=== PATIENT | male | born 1960 | race Caucasian/White ===

== ENCOUNTER → 2017-07-30 09:50 | Outpatient (CLI) | payer MEDICARE, SELFPAY ==
[2017-07-30 11:18] LABS: AST(SGOT) 33 U/L (15-37); Alanine Aminotransfer ALT/SGPT 28 U/L (16-61); Albumin, Serum 4.1 g/dL (3.2-5.0); Alkaline Phosphatase 48 U/L (45-117); Anion Gap 10 (5-15); BUN 61 mg/dL (7-18); BUN/Creat Ratio 29.8 RATIO (10-20); Bilirubin, Direct 0.14 mg/dL (0.00-0.30); Calcium,Total 9.2 mg/dL (8.5-10.1); Chloride 100 mmol/L (98-107); Cholesterol 90 mg/dL (200); Creatinine, Serum 2.05 mg/dL (0.70-1.30); EST Glomerular Filtration Rate 36 mL/min (>60); Est Glom Filt Rate - Afr Amer 43 mL/min (>60); Globulin 4.2 g/dL (2.2-4.2); Glucose 59 mg/dL (74-106); High Density Lipoprotein 21 mg/dL; Potassium 4.7 mmol/L (3.5-5.1); Protein, Total 8.3 g/dL (6.4-8.2); Sodium Level 138 mmol/L (136-145); T4 Total, Thyroxin 7.8 ug/dL (4.5-12.1); Triglycerides 245 mg/dL; Very Low Density Lipoprotein 49 mg/dL (5-40)
== END ==
PROVIDERS: Family Provider Family Medicine; PCP Family Medicine; Visit Provider Internal Medicine Cardiovascular Disease
DX: E11.9 Type 2 diabetes mellitus without complications (principal); E78.5 Hyperlipidemia, unspecified; E03.2 Hypothyroidism due to medicaments and other exogenous substances; Z79.899 Other long term (current) drug therapy
CPT/HCPCS: 36415; 80048; 80061; 80076; 84436; 84443

== ENCOUNTER → 2017-10-18 15:45 | Outpatient (CLI) | payer MEDICARE, SELFPAY ==
[2017-10-18 17:35] LABS: Anion Gap 7 (5-15); BUN 57 mg/dL (7-18); BUN/Creat Ratio 25.9 RATIO (10-20); Chloride 103 mmol/L (98-107); EST Glomerular Filtration Rate 33 mL/min (>60); Est Glom Filt Rate - Afr Amer 40 mL/min (>60); Glucose 69 mg/dL (74-106); Sodium Level 137 mmol/L (136-145)
== END ==
PROVIDERS: Family Provider Family Medicine; PCP Family Medicine; Visit Provider Family Medicine
DX: E11.9 Type 2 diabetes mellitus without complications (principal)
CPT/HCPCS: 36415; 80048

== ENCOUNTER → 2017-11-09 16:24 | Outpatient (CLI) | payer MEDICARE, SELFPAY ==
[2017-11-09 17:48] LABS: Absolute Lymphocyte Count 1.41 X10^3/ul (0.83-4.51); Absolute Neutrophil Count 6.1 X10^3/uL (2.0-7.7); Basophil# 0.03 X10^3/uL; Basophil% 0.4 % (0-1); Eosinophil# 0.26 X10^3/uL; Hematocrit 41.6 % (40-54); Hemoglobin 13.5 g/dl (13.0-16.5); Lymphocyte # 1.41 X10^3/ul (4.0); Lymphocyte % 16.5 % (19-41); Mean Corp Hgb Conc 32.5 g/gl (32-36); Mean Corpuscular Hgb 30.7 pg (27.0-32.0); Mean Corpuscular Volume 94.5 fL (80-94); Mean Platelet Vol. 10.5 fl (6.2-12.0); Monocyte# 0.68 X10^3/uL; Neutrophil # 6.13 X10^3/uL (2.7-7.7); Neutrophil % 71.7 % (47-70); Platelet Count 242 K/mm3 (150-450); RBC Distribution Width CV 14.8 % (11.6-14.6); RBC Distribution Width SD 50.5 fl (35.1-43.9); White Blood Count 8.5 K/mm3 (4.4-11.0)
[2017-11-09 17:52] LABS: POSITIVE COUNT NO; POSITIVE DIFFERENTIAL NO; POSITIVE MORPHOLOGY NO
== END ==
PROVIDERS: Family Provider Family Medicine; PCP Family Medicine; Visit Provider Family Medicine
DX: D64.9 Anemia, unspecified (principal)
CPT/HCPCS: 36415; 85025

== ENCOUNTER → 2018-02-19 06:39 | Outpatient (CLI) | payer MEDICARE, SELFPAY ==
--- NOTE | 2018-02-19 06:46 | RAD_ITS ---
STUDY: X-RAY CHEST REASON FOR EXAM: Male, 57 years old. CHF TECHNIQUE: Frontal and lateral views of the chest COMPARISON: 10/17/2016 FINDINGS: The lungs are clear. There are no pleural effusions. There is no pneumothorax. The heart is enlarged, but stable. Again noted is a pacemaker. The patient is status post sternotomy. RAD/Chest PA and Lateral IMPRESSION: No acute thoracic pathology. Electronically Signed: Ld Najera, at 17:03 EDT Tel , Service support ,
--- NOTE | 2018-02-19 15:48 | PFTCOMP ---
COMPLETE PULMONARY FUNCTION TEST INTERPRETATION Brief HPI: Patient is a 57 year old male, currently under the care of Dr. Velez, who presents to [facility] for complete pulmonary function tests secondary to diagnosis of high risk med use. Respiratory therapist reports good effort and reproducible results. Interpretation: Forced expiration spirometry shows no large airways obstructive ventilatory defect with an FEV1 of 41% predicted. There is no significant bronchodilator response by ATS criteria. Spirograms are of good quality and plateau slowly, indicating slowly emptying areas of the lungs. The respiratory flow volume loop shows a normal pattern. Lung volumes by body plethysmography show a decreased total lung capacity at 4.9 L, 64% predicted. FRC and RV are elevated out of proportion. Lung volume measurements are consistent with air-trapping. Diffusion capacity by carbon monoxide is decreased at 56% predicted. The airway resistance is normal. Compared to previous pulmonary function tests from 10/17/16, there has been a significant reduction in FVC and FEV1 by 19% and 18% respectively. Impression: Moderate restrictive ventilatory defect with a symmetric reduction diffusing capacity. There has been some worsening in air flows compared to previous.
== END ==
PROVIDERS: Family Provider Family Medicine; PCP Family Medicine; Referring Provider Internal Medicine Cardiovascular Disease; Visit Provider Internal Medicine Cardiovascular Disease
DX: Z79.899 Other long term (current) drug therapy (principal)
CPT/HCPCS: 71046; 94060; 94726; 94729

== ENCOUNTER → 2018-04-19 10:24 | Outpatient (CLI) | payer MEDICARE, SELFPAY ==
[2018-02-11 11:12] VITALS: BMI 31.9
[2018-04-19 13:36] LABS: AST(SGOT) 26 U/L (15-37); Alanine Aminotransfer ALT/SGPT 29 U/L (16-61); Albumin, Serum 4.2 g/dL (3.2-5.0); Alkaline Phosphatase 56 U/L (45-117); Anion Gap 8 (5-15); BUN 76 mg/dL (7-18); BUN/Creat Ratio 36.9 RATIO (10-20); Bilirubin, Direct 0.13 mg/dL (0.00-0.30); Calcium,Total 8.8 mg/dL (8.5-10.1); Chloride 100 mmol/L (98-107); Cholesterol 109 mg/dL (200); Creatinine, Serum 2.06 mg/dL (0.70-1.30); EST Glomerular Filtration Rate 35 mL/min (>60); Est Glom Filt Rate - Afr Amer 43 mL/min (>60); Globulin 3.8 g/dL (2.2-4.2); Glucose 256 mg/dL (74-106); High Density Lipoprotein 20 mg/dL; Potassium 5.9 mmol/L (3.5-5.1); Sodium Level 134 mmol/L (136-145); Triglycerides 427 mg/dL
--- OUTSIDE RECORDS SUMMARY | 2018-06-05 01:25 | XMS RPT_ITS ---
:1960 Author Organization OHIP Care Team Providers Name Role Phone Aaron Doe Attending Unavailable Aaron Doe Primary Care Unavailable Juana Ureña Attending Unavailable Aaron Sarmiento Attending Unavailable Aaron Sarmiento Referring Unavailable Aaron Doe Primary Care Unavailable Aaron Doe Attending Unavailable Aaron Doe Primary Care Unavailable Aaron Doe Attending Unavailable Aaron Doe Primary Care Unavailable Juana Ureña Attending Unavailable Aaron Doe Referring Unavailable Aaron Doe Primary Care Unavailable Aaron Sarmiento Attending Unavailable Aaron Doe Referring Unavailable Aaron Sarmiento Attending Unavailable Aaron Sarmiento Referring Unavailable Aaron Doe Primary Care Unavailable Raúl Preciado Attending Unavailable Moodiskelliw, Aaron Referring Unavailable Juana Ureña Attending Unavailable Aaron Doe Referring Unavailable Juana Ureña Attending Unavailable PROBLEMS PROBLEMS DATE TYPE CONDITION / CODE ATTENDING STATUS SOURCE 04/19/2018 Unknown E11.9 - Type 2 Aaron Doe Active [facility] diabetes mellitus Community without Hospital complications / Repository E11.9(ICD-10) 04/09/2018 Unknown Z95.810 - Presence Juana Ureña Active [place] of automatic Community (implantable) Hospital cardiac Repository defibrillator / Z95.810(ICD-10) 04/09/2018 Unknown I25.5 - Ischemic [place] Ureña Active [facility] cardiomyopathy / Community I25.5(ICD-10) Hospital Repository 04/09/2018 Unknown I43 - Cardiomyopathy Niranjan Juana Active [facility] in diseases Community classified elsewhere Hospital / I43(ICD-10) Repository 02/26/2018 Unknown Z79.899 - Other long Raúl Preciado Active [facility] term (current) drug Community therapy / Hospital Z79.899(ICD-10) Repository 01/01/2018 Unknown I50.22 - Chronic [place] U[place]ña Active [facility] systolic Community (congestive) heart Hospital failure / Repository I50.22(ICD-10) 11/09/2017 Unknown D64.9 - Anemia, Jitendra Aaron Active [facility] unspecified / Community D64.9(ICD-10) Hospital Repository 07/30/2017 Unknown E78.5 - Aaron Sarmiento Active [facility] Hyperlipidemia, Community unspecified / Hospital E78.5(ICD-10) Repository 07/30/2017 Unknown E03.2 - Aaron Sarmiento Active [facility] Hypothyroidism due Community to medicaments and Hospital other exogenous Repository substances / E03.2(ICD-10) PROCEDURES PROCEDURES No Procedure Records FoundRESULTS RESULTS BASIC METABOLIC Collected: 04/19/2018 Status: F Source: [place] PROFILE (BMP) 10:[facility] AM [facility] TYPE CODE TESTS RESULT OUT OF RANGE REFERENCE UNITS LAB L501.0100 74-106 mg/dL High GLU 256 Result Comment: Glucose result greater than or equal to 200 mg/dL suggests DIABETES MELLITUS per A.D.A. criteria. Please note revised GLUCOSE reference range effective 2017. LAB L501.1000 7-18 mg/dL High BUN 76 LAB L501.1100 0.70-1.30 mg/dL High CREAT,SERUM 2.06 Result Comment: The validity of the calculated GFR AND GFRAA in patients over 70 years has not been determined. Clinical correlation is essential. LAB L501.1110 >60 mL/min Low EST GFR 35 Result Comment: Non- GFR Calc LAB L501.1115 >60 mL/min Low EST GFR - AA 43 Result Comment: GFR Calc LAB L501.1300 10-20 RATIO High BUN/CRE 36.9 LAB L501.2200 8.5-10.1 mg/dL CA Normal 8.8 LAB L501.5300 136-145 mmol/L Low NA 134 LAB L501.5600 3.5-5.1 mmol/L High K 5.9 LAB L501.5900 98-107 mmol/L CL Normal 100 LAB L501.6100 21.0-32.0 mmol/L Normal CO2 26.0 LAB L501.6200 5-15 Normal GAP 8 Performed By: #### L500.2500, L500.3400, L500.4100 #### [facility] [address] [place], [place], [id number] LIVER PROFILE Collected: 04/19/2018 Status: F Source: [place] 10:26 AM [facility] REPOSITORY TYPE CODE TESTS RESULT OUT OF RANGE REFERENCE UNITS LAB L501.1500 6.4-8.2 g/dL Normal T PROT 8.0 LAB L501.1800 3.2-5.0 g/dL Normal ALB 4.2 LAB L501.1950 2.2-4.2 g/dL Normal GLOB 3.8 LAB L501.4100 15-37 U/L Normal AST 26 LAB L501.4305 45-117 U/L Normal ALK P 56 LAB L501.4405 16-61 U/L Normal ALT 29 LAB L501.4600 0.20-1.00 mg/dL Normal T BILI 0.30 LAB L501.4700 0.00-0.30 mg/dL Normal D BILI 0.13 Performed By: #### L500.2500, L500.3400, L500.4100 #### [facility] [address] [place], [address] LIPID PROFILE Collected: 04/19/2018 Status: F Source: [place] 10:26 AM [facility] REPOSITORY TYPE CODE TESTS RESULT OUT OF RANGE REFERENCE UNITS LAB L501.4900 200 mg/dL Normal CHOL 109 Result Comment: <200 mg/dL Desirable 200-240 mg/dL Borderline >240 mg/dL High Risk LAB L501.5000 mg/dL High TRIG 427 Result Comment: The drugs N-Acetylcysteine and Metamizole may falsely depress this assay. TRIGLYCERIDE IS GREATER THAN 400 mg/dL. LDL RESULT IS INVALID AND WILL NOT BE REPORTED. Serum Triglycerides Reference Interval Normal <150 mg/dL Borderline high 150 - 199 mg/dL High 200 - 499 mg/dL Very High > or = 500 mg/dL LAB L501.6400 mg/dL Low HDL 20 Result Comment: The drugs N-Acetylcysteine and Metamizole may falsely depress this assay. Reference Range HDL <40 mg/dL Low HDL Cholesterol HDL >or= 60 mg/dL High HDL Cholesterol LAB L501.6500 0-130 mg/dL Test Normal not performed LDL LAB L501.6600 5-40 mg/dL Test Normal not performed VLDL Performed By: #### L500.2500, L500.3400, L500.4100 #### [facility] [address] [place], [address] PACEMAKER CHECK Observed: 04/08/2018 Status: F Source: [place] 4:04 PM [facility] REPOSITORY [facility] [address] [place] [address] Pacemaker Check Date of Service: 04/08/181511 MR#: [id number] Acct: [id number] Name: NATHALY COPPOLA Rep #: [id number] : 1960 From: [place] Ureña Age/Sex: 57/M Location: [facility] Status: Signed 04/08/18 1514 <Electronically signed by Juana Ureña > Date Juana Ureña 04/08/18 1604<Electronically signed by Aaron Sarmiento MD> Kaitlynnigner Signature: Date (if applicable) Aaron Sarmiento MD CC: PULMONARY FUNCTION Observed: 02/19/2018 Status: F Source: [place] REPORT COMP 4:17 PM [facility] REPOSITORY [facility] Pulmonary Services/Neurology [address] [place] [address] MR#: [id number] Acct: [id number] Name: NATHALY COPPOLA Rep #: [id number] : 1960 57 From: Raúl Preciado MD Referring Dr: Aaron Sarmiento MD Status: REG CLI Ordering Dr: Date: Location: [facility] Sex: M C COMPLETE PULMONARY FUNCTION TEST INTERPRETATION Brief HPI: Patient is a 57 year old male, currently under the care of Dr. Sarmiento, who presents to [facility] for complete pulmonary function tests secondary to diagnosis of high risk med use. Respiratory therapist reports good effort and reproducible results. Interpretation: Forced expiration spirometry shows no large airways obstructive ventilatory defect with an FEV1 of 41% predicted. There is no significant bronchodilator response by ATS criteria. Spirograms are of good quality and plateau slowly, indicating slowly emptying areas of the lungs. The respiratory flow volume loop shows a normal pattern. Lung volumes by body plethysmography show a decreased total lung capacity at 4.9 L, 64% predicted. FRC and RV are elevated out of proportion. Lung volume measurements are consistent with air-trapping. Diffusion capacity by carbon monoxide is decreased at 56% predicted. The airway resistance is normal. Compared to previous pulmonary function tests from 10/17/16, there has been a significant reduction in FVC and FEV1 by 19% and 18% respectively. Impression: Moderate restrictive ventilatory defect with a symmetric reduction diffusing capacity. There has been some worsening in air flows compared to previous. 02/19/18 1617 <Electronically signed by Raúl Preciado MD> Date Raúl Preciado MD CC: Raúl Preciado MD; Aaron Sarmiento MD; Aaron Doe MD Date Dictated: 02/19/181547 Date Transcribed: 02/19/181547 Sheet Metal Welder: ZEKE Signed CHEST PA AND LATERAL Observed: 02/19/2018 Status: F Source: [place] 6:46 AM [facility] REPOSITORY [facility] Imaging Services [address] [place] [address] Chest PA and Lateral MR#: [id number] Acct: [id number] Name: NATHALY COPPOLA Rep #: [id number] : 1960 M 57 From: dL Najera MD PCP: Aaron Doe MD Status: REG CLI Study: Chest PA and Lateral Date of Exam: 02/19/18 Exam# [id number] Ordering Dr: Aaron Sarmiento MD STUDY: X-RAY CHEST REASON FOR EXAM: Male, 57 years old. CHF TECHNIQUE: Frontal and lateral views of the chest COMPARISON: 10/17/2016 FINDINGS: The lungs are clear. There are no pleural effusions. There is no pneumothorax. The heart is enlarged, but stable. Again noted is a pacemaker. The patient is status post sternotomy. RAD/Chest PA and Lateral IMPRESSION: No acute thoracic pathology. Electronically Signed: Ld Najera, at 17:03 EDT Tel , Service support , CC: Aaron Sarmiento MD; Aaron Doe MD Sheet Metal Welder: Signed CARDIOLOGY VISIT Observed: 02/11/2018 Status: F Source: [place] REPORT 12:33 PM [facility] REPOSITORY [facility] 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 Overall from a cardiac standpoint he states he continues to feel good. He is not complaining of any ongoing symptoms of classic angina pectoris at rest or with exertion and he has not had use any nitroglycerin sublingual tablets. There has been no issues with overt acute CHF such as orthopnea or PND. His lower extremities appear to be chronically discolored but without any obvious ongoing lower extremity/ankle/pedal edema. There is been no near syncope or syncope and he has had no ICD discharges. Intake Vital Signs02/11/18 Height 6 ft 2 in 02/11/18 Weight: 249 lb 02/11/18 Body Mass Index (BMI) 31.9 02/11/18 Blood Pressure 110/58 L Intake Visit Reasons: 6 M FU Allergies No Known Allergies Allergy (Unverified 02/11/18 11:12) Medications aspirin 81 mg tablet,delayed release 81 mg PO QDAY 05/10/17 [History Confirmed 02/11/18] carvedilol 12.5 mg tablet 12.5 mg PO BID 05/10/17 [History Confirmed 02/11/18] cholecalciferol (vitamin D3) 2,000 unit capsule 2,000 unit PO QDAY cap 05/10/17 [History Confirmed 02/11/18] febuxostat 80 mg tablet 80 mg PO QDAY 05/10/17 [History Confirmed 02/11/18] ferrous gluconate 324 mg (38 mg iron) tablet 324 mg PO TID tab 05/10/17 [History Confirmed 02/11/18] gemfibrozil 600 mg tablet 600 mg PO BID 05/10/17 [History Confirmed 02/11/18] metformin 500 mg tablet 500 mg PO BID 05/10/17 [History Confirmed 02/11/18] nitroglycerin 0.4 mg sublingual tablet 0.4 mg SUBLINGUAL Q5M PRN 05/10/17 [History Confirmed 02/11/18] atorvastatin 20 mg tablet 20 mg PO QDAY #90 tab 07/04/17 [Rx Confirmed 02/11/18] ramipril 2.5 mg capsule 2.5 mg PO QDAY #90 cap 08/09/17 [Rx Confirmed 02/11/18] hydralazine 10 mg tablet 10 mg PO TID #270 tab 09/26/17 [Rx Confirmed 02/11/18] spironolactone 25 mg tablet 25 mg PO QDAY #90 tab 09/26/17 [Rx Confirmed 02/11/18] amiodarone 200 mg tablet 200 mg PO QDAY #90 tab 02/11/18 [Rx Confirmed 02/11/18] furosemide 20 mg tablet 20 mg PO BID tab 02/11/18 [History] glimepiride 1 mg tablet 2 mg PO QAM tab 02/11/18 [History Confirmed 02/11/18] icosapent ethyl 1 gram capsule 1 g PO BID cap 02/11/18 [History Confirmed 02/11/18] levothyroxine 75 mcg tablet 75 mcg PO DAILY #90 tab 02/11/18 [Rx Confirmed 02/11/18] [facility] Medical History Atherosclerosis of coronary artery bypass graft without angina pectoris (Acute) Aneurysm of heart (Acute) Ischemic cardiomyopathy (Acute) Idiopathic pulmonary hypertension (Acute) Cardiomyopathy in other diseases classified elsewhere (Acute) Left atrial enlargement (Acute) Long-term use of high-risk medication (Acute) Hyperlipidemia (Chronic) Hypertension (Chronic) Chronic systolic CHF (congestive heart failure) (Chronic) Anemia (Acute) Cardiac arrest with ventricular fibrillation (Acute) Chest pain (Acute) Dyspnea (Acute) Edema (Acute) Fatigue (Acute) Gout (Acute) Syncope and collapse (Acute) Type 2 diabetes mellitus (Acute) Hypothyroidism, iatrogenic (Chronic) Atherosclerotic heart disease of [place] coronary artery without angina pectoris (Inactive) Surgical History Aortocoronary bypass status (Chronic 10/2005) Automatic implantable cardiac defibrillator in situ (Resolved 02/2012) Family History Father Myocardial infarction Mother CAD (coronary artery disease) Hypertension Brother Hypertension Sister Hypertension Diabetes Sister Hypertension Diabetes Social History Smoking Status: Former smoker alcohol intake: never substance use type: does not use ROS Const Const: Negative for fatigue, weakness, weight gain, weight loss, frequent falls or excessive sweating Eyes Eyes: Negative for change in vision, blurry vision or transient loss of vision ENT ENT: Negative for dizziness or balance problems Cardio Chest Pain: No Palpitations: No Edema: None Muscle aches with walking: None Resp Respiratory: Positive for SOB with activity (baseline); negative for SOB at rest GI GI: Negative vomiting or vomiting blood/hematemesis : Negative for hematuria Musc Musc: Negative for balance problems, muscle aches/ myalgia, muscle weakness or joint pain Skin Skin: Negative non-healing lesions or rash Neuro Neuro: Negative for weakness, blurry vision, dizziness, lightheadedness, frequent falls or orthostatic symptoms [place] Hematologic/Lymphatic: Negative for easy bleeding Endo Endo: Negative for fatigue or excessive sweating Psych Psych: Negative for anxiety or depression Allergy Allergy/Immunology: Negative for hives, Negative for rash Cardiology Exam Const Appearance: cooperative, healthy appearing, comfortable, well developed and well groomed Nutritional Appearance: overweight Orientation: alert, awake and oriented x3 Head Head: normal to inspection, normocephalic and atraumatic Ears: hearing grossly normal bilaterally Nose: external nose normal Face and Sinus: face symmetric Mouth: oral mucosae normal Teeth and gingiva: dentition normal Eyes General: appearance normal, both eyes and all related structures Eyelids: eyelids normal Conjunctivae: conjunctivae normal Pupils: PERRL Neck Neck: normal visual inspection Carotids: normal carotid upstroke Chest Chest inspection: normal inspection of the chest and symmetric chest movement Auscultation: Bilateral: Clear to Auscultation Cardio Palpation: normal PMI Rate: regular rate Rhythm: regular rhythm Heart sounds: S1 normal and S2 normal Murmur: Grade 2/6, mid systolic, LLSB and LVOT GI GI: normal to inspection, bowel sounds present, soft and no hepatosplenomegaly Neuro General: alert, awake and oriented x3 Skin Skin: no rashes or lesions noted Extremities Pulses: Normal: Right Radial Pulse, Left Radial Pulse Lower Extremity Edema: Trace: Bilateral Psych Psychological: normal affect Supplemental Info He had a dense thoracic echocardiogram on 10/29/2012 Summary: The study was technically difficult. Contrast injection was performed. Severely dilated left ventricle. Severe segmental systolic dysfunction (see wail motion). The estimated ejection fraction is 1 5 %. The left atrium is moderately enlarged. The right atrium is mildly enlarged. There is mild annular annular calcification. Mild papillary muscle dysfunction of the mitral valve. Trivial mitral valve insufficiency. Mild tricuspid valve insufficiency. Aortic sclerosis, no stenosis. Right ventricular systolic pressure estimated to be 33 mmHg. Transmitral doppler flow suggestive of impaired relaxation of left ventricle lCD or pacer leads identified within the right atrium lCD or pacer leads identified within the right ventricle He had a stress test performed on 01/02/2006 CONCLUSION: 1. Technically adequate (%PMHR>85%) ETT. 2. Peak exercise ECG with no obvious diagnostic NEC evidence of myocardial ischemia at the heart rate achieved. ECG evidence of myocardial ischemia at a higher rate cannot be excluded. He had a cardiac catheterization performed on 10/27/2005 FINAL IMPRESSION 1. Elevated left ventricular end-diastolic pressure compatible with decreased LV systolic function. 2. Secondary pulmonary hypertension. 3. Oxygen saturations, no obvious evidence of intracardiac shunting phenomenon. 4. Left ventricle. Severe segmental left ventricular systolic dysfunction with severe hypokinesis of the distal anterior, anterior apical segment and akinesis of the mid diaphragmatic and inferior apical segment with an estimite LV IF 15 5. Left main. Angiographic venkatesh]. 1. LAD. Anterior trunk - proximal tapering toward the sepia] cat tender system with diffuse 25 eccentric appearing stenosis. a> At the level of the septal cat tender, there is 85-95% irregular eccentric appearing stenosis. b> Remainder of the LAD system with minimal luminal irregularities appearing to fill late and somewhat faintly but appearing patent. 7. LCX. Proximal (pro CM branch) 85% eccentric appearing stenosis. 8. RCA, Proximal to distal diffuse 25 50% irregular appearing stenosis with additional findings of segments suspicious for ulcerated plaque. a> Right PA proximally subtotally occuluded with remainder of the vessel filling late and faintly. 9. Abdominal aorta: patent. b) Bilateral renal artery patent with no obvious angiographic evidence of significant renal artery stenosis. He had a PCI performed on 02/07/2012 at [facility] Summary: Coronary circulation: Bypass grafts were diseased. Severe coronary calcification was present. 1st lesion interventions; A successful balloon angioplasty was performed on the 99 % lesion in the 2nd obtuse marginal. Following intervention there was an excellent angiographic appearance with a 10 % residual stenosis. His previous open heart surgery was [place]/03/2005 [place] [facility] at which time he received a VELASQUEZ to the LAD, SERENA to the second OM, and an SVG to the right posterior lateral branch as well as a left ventricular apical and inferior aneurysmectomy He does have a biventricular ICD in place Facility Service Manager: [employer] Name: Norma MACIEL Model #: [id number] Serial #: [id number] Date Implanted: 02/08/2012 Device Characteristics Device: Biventricular Type: Implantable defibrillator Assessment AND Plan 1. Atherosclerosis of coronary artery bypass graft of [place] heart without angina pectoris I25.810 Plan At the present time he appears to be doing well without any acute symptoms of angina pectoris. He will continue his current risk factor modification and medical therapy. It was not felt he required reevaluation of his coronary/graft status at this time 2. Postsurgical aortocoronary bypass status Z95.1 CABG x3 VELASQUEZ to LAD, SERENA as pedicle graft to 2nd OM, SVG to posterolateral branck of RCA, Apical and inferior Aneuysmectomy 10/2005 Plan He does have a history of CABG as noted above. Again he appears to be without acute symptoms revolving around his underlying CAD and/or revascularization status. He will continue his medical management and follow-up. 3. S/P PTCA (percutaneous transluminal coronary angioplasty) Z98.61 Plan He does have a history of previous PCI as noted above based upon his 02/07/2012 [place] [facility] report. Again he appears stable without any acute symptoms at this time. He will continue to be followed. 4. Cardiomyopathy, ischemic I25.5 Plan He does have a history of an underlying ischemic severe ischemic mediated cardiomyopathy. He appears without symptoms of acute CHF at this time. He will continue his current medical management. 5. Chronic systolic CHF (congestive heart failure) I50.22 Plan Again he has had chronic systolic mediated CHF. He appears to be without acute symptoms at this time. He will continue his medical therapy and follow-up. 6. Automatic implantable cardiac defibrillator in situ Z95.810 Bi-V ICD Plan He does have a biventricular ICD in place as noted above. It has been functioning appropriately. Based upon his most recent evaluation he had no ventricular events reported. His battery longevity was approximately 1 year. 7. Long-term use of high-risk medication Z79.899 Plan He is on medication requiring long-term management and monitoring. This will include hepatic studies, thyroid studies, chest x-rays, and PFTs. His most recent labs from July of this year were reviewed with respect to his hepatic studies, thyroid studies as well as his lipid studies. He believes they have been repeated since July. A request will be made for any updated laboratory studies. In the meantime he will proceed with his chest x-ray and PFTs as he is on amiodarone therapy Orders Orders: 8. Hyperlipidemia, unspecified hyperlipidemia type E78.5 Plan Again a copy of his most recent lipid labs will be appreciated for review. He will be having these evaluated at some point time in the future. 9. Essential hypertension I10 Plan His blood pressure appears to be well controlled. He will continue his current medical Plan Detail Other Medications New: Additional Comments Thank you for allowing me to participate in the care of your patient. Please don't hesitate to call if any issues arise. This note was generated using a voice recognition system and there may be incorrect words, spelling or punctuation that were not noted when reviewing the office note prior to saving. Follow Up 9 Months (PFM) 02/11/18 (Copy of PCP hepatic/lipid/thryoid labs) Coding Level of Care Code Off vis,est,level 4 Diagnoses Atherosclerosis of coronary artery bypass graft of [place] heart without angina pectoris I25.810 [place] vs. transplanted heart: [place] heart Postsurgical aortocoronary bypass status Z95.1 S/P PTCA (percutaneous transluminal coronary angioplasty) Z98.61 Cardiomyopathy, ischemic I25.5 Chronic systolic CHF (congestive heart failure) I50.22 Automatic implantable cardiac defibrillator in situ Z95.810 Long-term use of high-risk medication Z79.899 Hyperlipidemia, unspecified hyperlipidemia type E78.5 Hyperlipidemia type: unspecified Essential hypertension I10 Hypertension type: essential hypertension Coding Level of Care Code Off vis,est,level 4 Diagnoses Atherosclerosis of coronary artery bypass graft of [place] heart without angina pectoris I25.810 [place] vs. transplanted heart: [place] heart Postsurgical aortocoronary bypass status Z95.1 S/P PTCA (percutaneous transluminal coronary angioplasty) Z98.61 Cardiomyopathy, ischemic I25.5 Chronic systolic CHF (congestive heart failure) I50.22 Automatic implantable cardiac defibrillator in situ Z95.810 Long-term use of high-risk medication Z79.899 Hyperlipidemia, unspecified hyperlipidemia type E78.5 Hyperlipidemia type: unspecified Essential hypertension I10 Hypertension type: essential hypertension 02/11/18 1233 <Electronically signed by Aaron Sarmiento MD> Date Aaron Sarmiento MD Cosigner Signature: Date (if applicable) CC: Aaron Doe MD PACEMAKER CHECK Observed: 12/31/2017 Status: F Source: [place] 5:07 PM [facility] REPOSITORY [address] [place] [address] Pacemaker Check Date of Service: 12/31/17 1639 MR#: [id number] Acct: [id number] Name: NATHALY COPPOLA Rep #: [id number] : 1960 From: [place] Ureña Age/Sex: 57/M Location: [facility] Status: Signed Billing Codes ICD Device Billing: ICD Dev Prog Eval, Multi 12/31/17 1640 <Electronically signed by Juana Ureña > Date [place] Ureña 12/31/17 1707<Electronically signed by Aaron Sarmiento MD> Cosignruel Signature: Date (if applicable) Aaron Sarmiento MD CC: GEOR[place]IE W/DIFF, AUTOMATED Collected: 11/09/2017 Status: F Source: [place] 4:26 PM [facility] REPOSITORY TYPE CODE TESTS RESULT OUT OF RANGE REFERENCE UNITS LAB L100.1000 4.4-11.0 K/mm3 Normal WBC 8.5 LAB L100.1200 4.6-6.2 M/mm3 Low RBC 4.40 LAB L100.1300 13.0-16.5 g/dl Normal HGB 13.5 LAB L100.1400 40-54 % Normal HCT 41.6 LAB L100.1500 80-94 fL High MCV 94.5 LAB L100.1600 27.0-32.0 pg Normal MCH 30.7 LAB L100.1700 32-36 g/gl Normal MCHC 32.5 LAB L100.1810 11.6-14.6 % High RDW CV 14.8 LAB L100.1820 35.1-43.9 fl High RDW SD 50.5 LAB L100.1900 150-450 K/mm3 Normal PLT 242 LAB L100.2000 6.2-12.0 fl Normal MPV 10.5 LAB L100.2100 47-70 % High NEUT% 71.7 LAB L100.2200 19-41 % Low LY% 16.5 LAB L100.2300 0-10 % Normal MONO% 8.0 LAB L100.2400 0-5 % Normal EO% 3.0 LAB L100.2500 0-1 % Normal BASO% 0.4 LAB L100.2550 0.0-0.9 % Normal IM GRAN % 0.400 Result Comment: IG% - Immature Granulocytes (promyelocytes, myelocytes and metamyelocytes) > 1% indicates that a LEFT SHIFT is Present. LAB L100.2620 2.0-7.7 X10 3/uL Normal Absolute Neut 6.1 LAB L100.2720 0.83-4.51 X10 3/ul Normal Absolute Lymph 1.41 Performed By: #### L100.0100 #### [facility] [address], [address] BASIC METABOLIC Collected: 10/18/2017 Status: F Source: [place] PROFILE (BMP) 3:46 PM [facility] REPOSITORY TYPE CODE TESTS RESULT OUT OF RANGE REFERENCE UNITS LAB L501.0100 74-106 mg/dL Low GLU 69 Result Comment: Please note revised GLUCOSE reference range effective 2017. LAB L501.1000 7-18 mg/dL High BUN 57 LAB L501.1100 0.70-1.30 mg/dL High CREAT,SERUM 2.20 Result Comment: The validity of the calculated GFR AND GFRAA in patients over 70 years has not been determined. Clinical correlation is essential. LAB L501.1110 >60 mL/min Low EST GFR 33 Result Comment: Non- GFR Calc LAB L501.1115 >60 mL/min Low EST GFR - AA 40 Result Comment: GFR Calc LAB L501.1300 10-20 RATIO High BUN/CRE 25.9 LAB L501.2200 8.5-10.1 mg/dL CA Normal 9.0 LAB L501.5300 136-145 mmol/L NA Normal 137 LAB L501.5600 3.5-5.1 mmol/L K Normal 5.0 LAB L501.5900 98-107 mmol/L CL Normal 103 LAB L501.6100 21.0-32.0 mmol/L Normal CO2 27.0 LAB L501.6200 5-15 Normal GAP 7 Performed By: #### L500.2500 #### [facility] [address] [place], [address] PACEMAKER CHECK Observed: 08/15/2017 Status: F Source: [place] 11:16 AM [facility] REPOSITORY [facility] [address] [place] [address] Pacemaker Check Date of Service: 07/16/17 1051 MR#: [id number] Acct: [id number] Name: JOHANNARUELSYMONE Rep #: [id number] : 1960 From: [place] Age/Sex: 57/M Location: [facility] Status: Signed Comments Summary Comments: Bi-VICD Evaluation: Interrogation shows no VT/VF episodes and atrial burden 0% since 04/10/17. Left pectoral pocket/incision w/o s/s of infection or erosion. Pt offers no cardiac complaints. Presenting rhythm shows AV sequential Bi-Vpaced @ 68 ppm. RV/LV paced=98%. Battery longevity approx 1.5 yrs. Lead impedances, sensing and pace/sense thresholds remain stable. No parameter changes made. Counters cleared. Next f/u appt scheduled for in 3 mos. Device Device Date Interviewed: 07/16/17 Follow-up Location: in office Interview Reason: routine follow up Facility Service Manager: [employer] Name: Norma Model: E141 Serial #: [id number] Implant Date: 04/09/12 Year(s): 5 Implant Physician: [facility] Patient Characteristics Patient Substrate: Hypertrophic cardiomyopathy Ejection fraction %: 15 to 19 By: Echo (10/29/2012) Underlying rhythm: Sinus rhythm Pacemaker Dependent: No Device Characteristics Device: Biventricular Type: Implantable defibrillator Remote Follow-Up: No Device Physical Exam Yes Incision well healed, No hematoma, Pocket not tender and No drainage Leads Lead #1 Facility Service Manager Lead 1: [employer] Model Lead 1: 2088tc Serial# Lead 1: [id number] Date Implanted Lead 1: 02/08/12 Position Lead 1: RA Lead #2 Facility Service Manager Lead 2: [employer] Model Lead 2: 0181 Serial# Lead 2: [id number] Date Implanted Lead 2: 02/08/12 Position Lead 2: RV Lead #3 Facility Service Manager Lead 3: [employer] Model Lead 3: 4396 Serial# Lead 3: [id number] Date Implanted Lead 3: 02/08/12 Position Lead 3: LV Diagnostics Pacing % RA Pacin % RV Pacin % LV Pacin Mode Switching Total # Episodes: 0 % Mode switched: 0 Arrhythmias VF Episodes: 0 Fast VT Episodes: 0 Slow VT Episodes: 0 Atrial Tach Episodes: 0 Non-Sust Episodes: 0 Measurements Battery Charge Time (Sec): 11.3 Predicted Remaining Longevity (months or years): 1.5 years RA Measurements Signal Amplitude (mV): 8.0 Impedance (Ohms): 471 Threshold Voltage: 1.0 @ PW(ms): 0.4 RV Measurements Signal Amplitude (mV): 21.7 Impedance (Ohms): 511 Threshold Voltage: 0.7 @ PW(ms): 0.4 Shock Impedance (Ohms): 81 LV Measurements Signal Amplitude (mV): 8.4 Impedance (Ohms): 579 Threshold Voltage: 4.5 @ PW(ms): 0.3 Tachy Settings VF on 324 ms 185 (bpm) 1.0 sec 1.0 sec FVT ms (bpm) VT ms (bpm) Monitor Monitor Only ms (bpm) VF Therapies VF Therapy Status On On On On On On Energy 29 41 41 41 41 41 Pathway ATP: During charging off FVT Therapies FVT Therapy Status Off Off Off Off Off Off VT Therapies FVT Therapy Status Off Off Off Off Off Off Comments: Onel Settings Onel Settings Pacemaker Mode DDD Lower Rate Limit (bpm) 70 Hysteresis Rate (bpm) Max Track Rate (bpm) 130 Max Sensor Rate (bpm) Max AV Delay (msec) 180 Max PV Delay (msec) Max PVARP (msec) 280 Output/Sensing V/PW (ms) 2.0/0.4 2.0/0.4 4.5/0.6 Sensitivity RA RV LV AGC 0.5 0.6 1.0 Comments: Billing Codes ICD Device Billing: ICD Dev Prog Eval, Multi Assessment AND Plan Problems 1. Automatic implantable cardiac defibrillator in situ Z95.810 Bi-V ICD 2. Ischemic cardiomyopathy I25.5 3. Cardiomyopathy in other diseases classified elsewhere I43 4. Atherosclerosis of coronary artery bypass graft of [place] heart without angina pectoris I25.810 CABG x3 VELASQUEZ to LAD, SERENA as pedicle graft to 2nd OM, SVG to posterolateral branck of RCA, Apical and inferior Aneuysmectomy 10/200508/01/17 0815 <Electronically signed by Juana Ureña > Date [place] Ureña 08/15/17 1116<Electronically signed by Aaron Sarmiento MD> Cosigner Signature: Date (if applicable) Aaron Sarmiento MD CC: BASIC METABOLIC Collected: 07/30/2017 Status: F Source: [place] PROFILE (BMP) 10:00 AM [facility] REPOSITORY Order Comment: Order Date: 01/26/17 Order Info: 0788-1 - *Hepatic Function Panel BMP ORDERED BY DR. DOE ALL OTHER TESTS ORDERED BY DR. SARMIENTO Order Info: 87156-7 - *Lipid Profile CC PCP Comments: 12 hours fasting, may have water. Order Info: 2149-2 - *T4 (Total) Comments: Reason: Order Info: 3016-3 - *TSH TYPE CODE TESTS RESULT OUT OF RANGE REFERENCE UNITS LAB L501.0100 74-106 mg/dL Low GLU 59 Result Comment: Please note revised GLUCOSE reference range effective 2017. LAB L501.1000 7-18 mg/dL High BUN 61 LAB L501.1100 0.70-1.30 mg/dL High CREAT,SERUM 2.05 Result Comment: The validity of the calculated GFR AND GFRAA in patients over 70 years has not been determined. Clinical correlation is essential. LAB L501.1110 >60 mL/min Low EST GFR 36 Result Comment: Non- GFR Calc LAB L501.1115 >60 mL/min Low EST GFR - AA 43 Result Comment: GFR Calc LAB L501.1300 10-20 RATIO High BUN/CRE 29.8 LAB L501.2200 8.5-10.1 mg/dL CA Normal 9.2 LAB L501.5300 136-145 mmol/L NA Normal 138 LAB L501.5600 3.5-5.1 mmol/L K Normal 4.7 LAB L501.5900 98-107 mmol/L CL Normal 100 LAB L501.6100 21.0-32.0 mmol/L Normal CO2 28.0 LAB L501.6200 5-15 Normal GAP 10 Performed By: #### L500.2500 #### [facility] [address] [place], [address] LIVER PROFILE Collected: 07/30/2017 Status: F Source: [place] 10:00 AM [facility] REPOSITORY Order Comment: Order Date: 01/26/17 Order Info: 0788-1 - *Hepatic Function Panel BMP ORDERED BY DR. DOE ALL OTHER TESTS ORDERED BY DR. SARMIENTO Order Info: 83771-3 - *Lipid Profile CC PCP Comments: 12 hours fasting, may have water. Order Info: 3026-2 - *T4 (Total) Comments: Reason: Order Info: 3016-3 - *TSH TYPE CODE TESTS RESULT OUT OF RANGE REFERENCE UNITS LAB L501.1500 6.4-8.2 g/dL High T PROT 8.3 LAB L501.1800 3.2-5.0 g/dL Normal ALB 4.1 LAB L501.1950 2.2-4.2 g/dL Normal GLOB 4.2 LAB L501.4100 15-37 U/L Normal AST 33 LAB L501.4305 45-117 U/L Normal ALK P 48 LAB L501.4405 16-61 U/L Normal ALT 28 Result Comment: Please note revised ALT reference range effective 2017. LAB L501.4600 0.20-1.00 mg/dL Normal T BILI 0.40 LAB L501.4700 0.00-0.30 mg/dL Normal D BILI 0.14 Performed By: #### L500.3400 #### [facility] [address] [place], [address] LIPID PROFILE Collected: 07/30/2017 Status: F Source: [place] 10:00 AM [facility] REPOSITORY Order Comment: Order Date: 01/26/17 Order Info: 0788-1 - *Hepatic Function Panel BMP ORDERED BY DR. DOE ALL OTHER TESTS ORDERED BY DR. SARMIENTO Order Info: 42928-1 - *Lipid Profile CC PCP Comments: 12 hours fasting, may have water. Order Info: 3026-2 - *T4 (Total) Comments: Reason: Order Info: 3016-3 - *TSH TYPE CODE TESTS RESULT OUT OF RANGE REFERENCE UNITS LAB L501.4900 200 mg/dL Normal CHOL 90 Result Comment: <200 mg/dL Desirable 200-240 mg/dL Borderline >240 mg/dL High Risk LAB L501.5000 mg/dL High TRIG 245 Result Comment: The drugs N-Acetylcysteine and Metamizole may falsely depress this assay. Serum Triglycerides Reference Interval Normal <150 mg/dL Borderline high 150 - 199 mg/dL High 200 - 499 mg/dL Very High > or = 500 mg/dL LAB L501.6400 mg/dL Low HDL 21 Result Comment: The drugs N-Acetylcysteine and Metamizole may falsely depress this assay. Reference Range HDL <40 mg/dL Low HDL Cholesterol HDL >or= 60 mg/dL High HDL Cholesterol LAB L501.6500 0-130 mg/dL Normal LDL 20 LAB L501.6600 5-40 mg/dL High VLDL 49 Performed By: #### L500.4100 #### [facility] [address] [place], [address] T4 TOTAL, THYROXIN Collected: 07/30/2017 Status: F Source: [place] 10:00 AM [facility] REPOSITORY Order Comment: Order Date: 01/26/17 Order Info: 0788-1 - *Hepatic Function Panel BMP ORDERED BY DR. DOE ALL OTHER TESTS ORDERED BY DR. SARMIENTO Order Info: [id number] - *Lipid Profile CC PCP Comments: 12 hours fasting, may have water. Order Info: 3026-2 - *T4 (Total) Comments: Reason: Order Info: 3016-3 - *TSH TYPE CODE TESTS RESULT OUT OF RANGE REFERENCE UNITS LAB L501.9310 4.5-12.1 ug/dL T4 Normal THYROXIN 7.8 Performed By: #### L501.9310 #### [facility] [address] [place], [address] THYROID STIM HORMONE Collected: 07/30/2017 Status: F Source: [place]AN[place]A (TSH) 10:00 AM [facility] REPOSITORY Order Comment: Order Date: 01/26/17 Order Info: 0788-1 - *Hepatic Function Panel BMP ORDERED BY DR. DOE ALL OTHER TESTS ORDERED BY DR. SARMIENTO Order Info: 46600-9 - *Lipid Profile CC PCP Comments: 12 hours fasting, may have water. Order Info: 3026-2 - *T4 (Total) Comments: Reason: Order Info: 3016-3 - *TSH TYPE CODE TESTS RESULT OUT OF RANGE REFERENCE UNITS LAB L501.9520 0.358-3.74 uIU/mL Normal TSH 2.00 Performed By: #### L501.9520 #### [facility] [address] [place], [address] OFFICE VISIT REPORT Observed: 06/04/2017 Status: F Source: [place] 6:11 PM [facility] REPOSITORY [facility] [address] [place] [address] OFFICE VISIT Date of Service: MR#: [id number] Acct: [id number] Patient: SYMONE COPPOLA Rep #: [id number] : 1960 Provider: [place] Age/Sex: 56/M Location: [facility] Status: Signed ADDENDUM Addendum entered and electronically signed by KELLI Rogers 04/12/17 3:11 pm: Original Note: Comments Summary Comments: Bi-VICD Evaluaton: Interrogation shows no VT/VF episodes and 3 MS episodes, <1% since last check 01/02/17. Left pectoral pocket/incision w/o s/s of infection or erosion. Pt offers no cardiac complaints. Presenting rhythm shows AV sequential Bi-V paced @ 70 ppm. RV=99%. EZ=366%. Battery longevity approx 2 yrs. Lead impedances, sensing and pace/sense thresholds remain stable. LV threshold remain high but consistent with prior measurements. RV aplitude 21.8mV, LV amplitude 8.4mV. No parameter changes made. Counters cleared. Next f/u appt scheduled for in 3 mos. Device Device Date Interviewed: 04/10/17 Follow-up Location: in office Interview Reason: routine follow up Facility Service Manager: [employer] Name: Energen Model: E141 Serial #: [id number] Implant Date: 04/09/12 Year(s): 5 Patient Characteristics Patient Substrate: Nonischemic cardiomyopathy Underlying rhythm: Sinus rhythm Pacemaker Dependent: No Device Characteristics Device: Biventricular Type: Implantable defibrillator Remote Follow-Up: No Device Physical Exam Yes Incision well healed Leads Lead #1 Facility Service Manager Lead 1: [employer] Model Lead 1: 2088tc Serial# Lead 1: [id number] Date Implanted Lead 1: 02/08/12 Position Lead 1: RA Lead #2 Facility Service Manager Lead 2: [employer] Model Lead 2: 0181 Serial# Lead 2: [id number] Date Implanted Lead 2: 02/08/12 Position Lead 2: RV Lead #3 Facility Service Manager Lead 3: [employer] Model Lead 3: 4396 Serial# Lead 3: [id number] Date Implanted Lead 3: 02/08/12 Position Lead 3: LV Diagnostics Pacing % RA Pacin % RV Pacin % LV Pacin Mode Switching Total # Episodes: 3 % Mode switched: 1 Arrhythmias VF Episodes: 0 Fast VT Episodes: 0 Slow VT Episodes: 0 Non-Sust Episodes: 0 Measurements Battery Charge Time (Sec): 11.0 Predicted Remaining Longevity (months or years): 2 years RA Measurements Signal Amplitude (mV): 7.1 Impedance (Ohms): 489 Threshold Voltage: 1.0 @ PW(ms): 0.4 RV Measurements Impedance (Ohms): 547 Threshold Voltage: 0.7 @ PW(ms): 0.4 Shock Impedance (Ohms): 84 LV Measurements Signal Amplitude (mV): 8.4 Impedance (Ohms): 653 Threshold Voltage: 4.5 @ PW(ms): 0.3 Tachy Settings VF on 324 ms 185 (bpm) 1.0sec 1.0sec FVT ms (bpm) VT ms (bpm) Monitor Monitor Only ms (bpm) VF Therapies VF Therapy Status On On On On On On Energy 29 41 41 41 41 41 Pathway ATP: During charging off FVT Therapies FVT Therapy Status On/Off On/Off On/Off On/Off On/Off On/Off VT Therapies FVT Therapy Status On/Off On/Off On/Off On/Off On/Off On/Off Comments: Onel Settings Onel Settings Pacemaker Mode DDD Lower Rate Limit (bpm) 70 Hysteresis Rate (bpm) Max Track Rate (bpm) 130 Max Sensor Rate (bpm) Max AV Delay (msec) 180 Max PV Delay (msec) Max PVARP (msec) 280 Output/Sensing V/PW (ms) Sensitivity RA RV LV Comments: Billing Codes ICD Device Billing: ICD Dev Prog Eval, Multi 05/30/17 1218 <Electronically signed by Nona JUSTICE> Date Nona JUSTICE 04/10/17 1733<Electronically signed by [place] > Cosigner Signature: Date (if applicable) [place] CC: ALLERGIES ALLERGIES DATE TYPE / CODE NAME / CODE REACTION SEVERITY SOURCE 02/11/2018 Drug No Known Unknown [facility] Allergy/4160 Allergies/F00 Hospital 06272(SNOMED 9985101(RXNOR Repository CT) M) ENCOUNTERS ENCOUNTERS ADMIT/DISCHARGE ACCOUNT ADMITTING ENCOUNTER LOCATION SOURCE NUMBER CLASS 04/19/2018 [id number] Ambulatory [place] 7 [facility] ing:MFPLAB Repository 04/08/2018/ [id number] Ambulatory BMSBuilding:B [place] 8 4 [facility] Repository 02/19/2018 [id number] Ambulatory [place] 6 [facility] ing:PSN Repository 02/19/2018 [id number] Ambulatory BMSBuilding:W [place] 2 [facility] Repository 02/11/2018/ [id number] Ambulatory BMSBuilding:B [place] 8 1 [facility] Repository 12/31/2017/ [id number] Ambulatory BMSBuilding:B [place] 8 9 [facility] Repository 11/09/2017 [id number] Ambulatory [place] 8 [facility] ing:MFPLAB Repository 10/18/2017 [id number] Ambulatory [place] 8 [facility] ing:MFPLAB Repository 07/30/2017 [id number] Ambulatory [place] 3 [facility] ing:LAB Repository 07/16/2017/ [id number] Ambulatory BMSBuilding:B [place] 8 4 [facility] Repository 04/10/2017 [id number] Ambulatory BMSBuilding:B [place] 0 [facility] Repository PAYERS PAYERS ENCOUNTER GUARANTOR PAYER SUBSCRIBER SOURCE 04/19/2018 NATHALY Orr Primary Insurance:MMO NATHALY Orr [place] [id number] MEDICAREPolivette FOCERDOB: [facility] Number: [id number], [place] [id number] Repository [address]Xou: ([phone]) Date:7619-56-27QX [phone] (HP) [address] [place] [phone]: 04/19/2018 Secondary NOT GIVENUNK [place] Insurance:SELF PAY [facility] Number: Effective Repository Date:2018-04-19 04/08/2018 NATHALY Orr Primary Insurance:MMO NATHALY Orr [place] [id number] MEDICAREPolicy FOCKLERDOB: Community G[place]ME[place] Number: [id number] [place], [place] [id number] Repository [address]Psf: ([phone]) Date:2573-22-32ZB [phone] (HP) [address] [place] [phone]: 04/08/2018 Secondary NOT GIVENUNK [place] Insurance:SELF PAY [facility] Number: Effective Repository Date:2018-04-08 02/19/2018 NATHALY Orr Primary Insurance:MMO NATHALY Orr [place] [id number] MEDICAREPolicy FOCKLERDOB: Community G[place]ME[place] Number: [id number] [place], [place] [id number] Repository [address]Fta: ([phone]) Date:2826-81-04MK [phone] () [address] [place] [phone]: 02/19/2018 Secondary NOT GIVENUNK [place] Insurance:SELF PAY [facility] Number: Effective Repository Date:2018-02-11 02/19/2018 NATHALY Orr Primary Insurance:MMO NATHALY Orr [place] [id number] MEDICAREPolicy FOCKLERDOB: Community G[place]ME[place] Number: [id number] [place], [place] [id number] Repository [address]Uxd: (330) Date:2467-40-35CP [phone] () [address] [place] [phone]: 02/19/2018 Secondary NOT GIVENUNK [place] Insurance:SELF PAY [facility] Number: Effective Repository Date:2018-02-19 02/11/2018 NATHALY Orr Primary Insurance:MMO NATHALY Orr [place] [id number] MEDICAREPolicy FOCKLERDOB: Community [facility] Number: [id number] [place], [place] [id number] Repository [address]Dqt: (330) Date:6055-27-26WJ [phone] (HP) [address] [place] [phone]: 02/11/2018 Secondary NOT GIVENUNK [place] Insurance:SELF PAY [facility] Number: Effective Repository Date:2018-02-11 12/31/2017 NATHALY Orr Primary Insurance:MMO NATHALY Orr [place] [id number] MEDICAREPolicy FOCKLERDOB: [facility] Number: [id number] [place], [place] [id number] Repository [address]Lay: (330) Date:3648-75-48JW [phone] (HP) [address] [place] [phone]: 12/31/2017 Secondary NOT GIVENUNK [place] Insurance:SELF PAY [facility] Number: Effective Repository Date:2017-12-31 11/09/2017 NATHALY Orr Primary Insurance:MMO NATHALY Orr [place] [id number] MEDICAREPolicy FOCKLERDOB: [facility] Number: [id number] [place], [place] [id number] Repository [address]Qxl: (330) Date:3857-53-48GG [phone] (HP) [address] [place] [phone]: 11/09/2017 Secondary NOT GIVENUNK [place] Insurance:SELF PAY [facility] Number: Effective Repository Date:2017-11-09 10/18/2017 NATHALY Orr Primary Insurance:MMO NATHALY Orr [place] [id number] MEDICAREPolicy FOCKLERDOB: [facility] Number: [id number], [place] [id number] Repository [address]Sxi: (330) Date:8469-74-73XE [phone] (HP) [address] [place] [phone]: 10/18/2017 Secondary NOT GIVENUNK [place] Insurance:SELF PAY [facility] Number: Effective Repository Date:2017-10-18 07/30/2017 SYMONE B [id number] Primary Insurance:MMO SYMONE B [place] GÓMEZ MEDICAREPolicy FOCKLERDOB: [place] Number: [id number] [address]Hje: (924) [id number] Repository [phone] () Date:8430-84-14[address] [phone]: 07/30/2017 Secondary NOT GIVENUNK [place] Insurance:SELF PAY [facility] Number: Effective Repository Date:2017-07-30 07/16/2017 SYMONE B [id number] Primary Insurance:MMO SYMONE B [place] GÓMEZ MEDICAREPolicy FOCKLERDOB: [place], [place] Number: [id number] Hospital [address]Veg: [phone] [id number] Repository [phone] () Date:1612-99-29[address] [phone]: 07/16/2017 Secondary NOT GIVENUNK [place] Insurance:SELF PAY [facility] Number: Effective Repository Date:2017-07-11 04/10/2017 Nathaly Primary NOT GIVENUNK [place] [id number] Insurance:SELF PAY [place] Number: Effective Repository [phone]: 330) Date:2017-04-10 [phone] ()
== END ==
PROVIDERS: Family Provider Family Medicine; PCP Family Medicine; Visit Provider Family Medicine
DX: E11.9 Type 2 diabetes mellitus without complications (principal)
CPT/HCPCS: 36415; 80048; 80061; 80076

== ENCOUNTER → 2018-07-22 10:50 | Outpatient (CLI) | payer MEDICARE, SELFPAY ==
[2018-02-11 11:12] VITALS: BMI 31.9
[2018-07-22 12:33] LABS: Absolute Lymphocyte Count 1.16 X10^3/ul (0.83-4.51); Absolute Neutrophil Count 4.6 X10^3/uL (2.0-7.7); Basophil# 0.03 X10^3/uL; Basophil% 0.4 % (0-1); Eosinophil# 0.24 X10^3/uL; Eosinophils% 3.6 % (0-5); Hematocrit 38.7 % (40-54); Hemoglobin 11.9 g/dl (13.0-16.5); Lymphocyte # 1.16 X10^3/ul (4.0); Lymphocyte % 17.2 % (19-41); Mean Corp Hgb Conc 30.7 g/gl (32-36); Mean Corpuscular Hgb 31.1 pg (27.0-32.0); Mean Platelet Vol. 10.7 fl (6.2-12.0); Monocyte# 0.75 X10^3/uL; Monocyte% 11.1 % (0-10); Neutrophil # 4.55 X10^3/uL (2.7-7.7); Neutrophil % 67.4 % (47-70); Platelet Count 252 K/mm3 (150-450); RBC Distribution Width CV 14.9 % (11.6-14.6); RBC Distribution Width SD 54.9 fl (35.1-43.9); Red Blood Count 3.83 M/mm3 (4.6-6.2); White Blood Count 6.8 K/mm3 (4.4-11.0)
[2018-07-22 12:47] LABS: AST(SGOT) 25 U/L (15-37); Alanine Aminotransfer ALT/SGPT 24 U/L (16-61); Albumin, Serum 3.6 g/dL (3.2-5.0); Alkaline Phosphatase 46 U/L (45-117); Anion Gap 2 (5-15); BUN 56 mg/dL (7-18); Calcium,Total 8.8 mg/dL (8.5-10.1); Chloride 106 mmol/L (98-107); Cholesterol 92 mg/dL (200); EST Glomerular Filtration Rate 37 mL/min (>60); Est Glom Filt Rate - Afr Amer 44 mL/min (>60); Globulin 4.1 g/dL (2.2-4.2); Glucose 100 mg/dL (74-106); High Density Lipoprotein 21 mg/dL; Protein, Total 7.7 g/dL (6.4-8.2); Sodium Level 138 mmol/L (136-145); Triglycerides 190 mg/dL; Very Low Density Lipoprotein 38 mg/dL (5-40)
[2018-07-22 12:51] LABS: POSITIVE COUNT NO; POSITIVE DIFFERENTIAL NO; POSITIVE MORPHOLOGY NO
== END ==
PROVIDERS: Family Provider Family Medicine; PCP Family Medicine; Visit Provider Family Medicine
DX: E11.9 Type 2 diabetes mellitus without complications (principal); D64.9 Anemia, unspecified
CPT/HCPCS: 36415; 80048; 80061; 80076; 85025

== ENCOUNTER → 2018-10-29 | Outpatient (CLI) | payer MEDICARE, SELFPAY ==
[2018-10-25 12:00] VITALS: BMI 31.3
[2018-10-29 10:41] LABS: T4 Free Direct 1.16 ng/dL (0.76-1.46); Thyroid Stim Hormone (TSH) 2.14 uIU/mL (0.358-3.74)
== END | disposition home or self-care (01) ==
PROVIDERS: Family Provider Family Medicine; PCP Family Medicine; Referring Provider Nurse Practitioner Family; Visit Provider Nurse Practitioner Family
DX: E78.5 Hyperlipidemia, unspecified (principal); Z79.899 Other long term (current) drug therapy
CPT/HCPCS: 36415; 84439; 84443

== ENCOUNTER → 2018-12-18 | Outpatient (CLI) | payer MEDICARE, SELFPAY ==
[2018-10-25 12:00] VITALS: BMI 31.3
[2018-12-19 15:23] LABS: M R Staph aureus DNA By PCR Negative (Negative); Probe Check PASS; Staph aureus DNA By PCR POSITIVE (Negative)
== END | disposition home or self-care (01) ==
PROVIDERS: Family Provider Family Medicine; PCP Family Medicine; Referring Provider Podiatrist; Visit Provider Podiatrist
DX: L97.522 Non-pressure chronic ulcer of other part of left foot with fat layer exposed (principal)
CPT/HCPCS: 87070; 87075; 87077; 87186; 87205; 87640

== ENCOUNTER → 2019-01-31 | Outpatient (CLI) | payer MEDICARE, SELFPAY ==
[2018-10-25 12:00] VITALS: BMI 31.3
[2019-01-31 14:46] LABS: Anion Gap 5 (5-15); BUN 57 mg/dL (7-18); Calcium,Total 9.4 mg/dL (8.5-10.1); Chloride 103 mmol/L (98-107); Cholesterol 118 mg/dL (200); EST Glomerular Filtration Rate 39 mL/min (>60); Est Glom Filt Rate - Afr Amer 47 mL/min (>60); Glucose 91 mg/dL (74-106); High Density Lipoprotein 23 mg/dL; Potassium 5.5 mmol/L (3.5-5.1); Sodium Level 137 mmol/L (136-145); Triglycerides 300 mg/dL; Very Low Density Lipoprotein 60 mg/dL (5-40)
== END | disposition home or self-care (01) ==
LOC: MFPLAB 11:20
PROVIDERS: Family Provider Family Medicine; PCP Family Medicine; Referring Provider Family Medicine; Visit Provider Family Medicine
DX: E11.9 Type 2 diabetes mellitus without complications (principal)
CPT/HCPCS: 36415; 80048; 80061

== ENCOUNTER 2019-03-20 08:03 | Day surgery (SDC) | payer MEDICARE, SELFPAY ==
[2018-10-25 12:00] VITALS: BMI 31.3
--- NOTE | 2019-03-10 04:04 | HP_ITS ---
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 At the present time he states overall he is doing well. He denies any ongoing chest discomfort or difficulty breathing at rest or with exertion. He has had no acute orthopnea or PND. He has had no worsening lower extremity peripheral pitting edema. There is been no near syncope or syncope or ICD discharge. His left heel is recovering from a previous pressure sore. He states that he is still wearing his surgical boot to protect it. However he notes that it is not actively infected at this time. He is not on continued antibiotics. He did have an ECG in the office today. He remains in an underlying AV sequential paced rhythm with the appearance of a biventricular pacemaker. He is due for an upcoming ICD generator change. His previous lipid labs were reviewed. His previous amiodarone testing with respect to thyroid lab gland chest X MP these were reviewed. It is been approximately 1 year since his previous PFTs. Intake Vital Signs 03/10/19 Height 6 ft 2 in 03/10/19 Weight: 245 lb 03/10/19 Body Mass Index (BMI) 31.4 03/10/19 Blood Pressure 118/68 03/10/19 Blood Pressure Location Lt brachial 03/10/19 Blood Pressure Position Sitting 03/10/19 Respiratory Rate 18 03/10/19 Pulse Rate 72 03/10/19 Pulse Source Auscultation Intake Visit Reasons: 6 M FU/H&P for gen chg 11-14, [employer] Required: No Accompanied by: Self Allergies No Known Allergies Allergy (Verified 03/10/19 15:23) Medications aspirin 81 mg tablet,delayed release 81 mg PO QDAY 05/10/17 [History Confirmed 03/10/19] cholecalciferol (vitamin D3) 2,000 unit capsule 2,000 unit PO QDAY cap 05/10/17 [History Confirmed 03/10/19] febuxostat 80 mg tablet 80 mg PO QDAY 05/10/17 [History Confirmed 03/10/19] ferrous gluconate 324 mg (38 mg iron) tablet 324 mg PO TID tab 05/10/17 [History Confirmed 03/10/19] gemfibrozil 600 mg tablet 600 mg PO BID 05/10/17 [History Confirmed 03/10/19] metformin 500 mg tablet 500 mg PO BID 05/10/17 [History Confirmed 03/10/19] nitroglycerin 0.4 mg sublingual tablet 0.4 mg SUBLINGUAL Q5M PRN 05/10/17 [History Confirmed 03/10/19] glimepiride 1 mg tablet 2 mg PO QAM tab 02/11/18 [History Confirmed 03/10/19] icosapent ethyl 1 gram capsule 1 g PO BID cap 02/11/18 [History Confirmed 03/10/19] amiodarone 200 mg tablet 200 mg PO QDAY #90 tab 02/12/18 [Rx Confirmed 03/10/19] carvedilol 12.5 mg tablet 12.5 mg PO BID #180 tab 03/25/18 [Rx Confirmed 03/10/19] atorvastatin 20 mg tablet 20 mg PO QDAY #90 tab 07/05/18 [Rx Confirmed 03/10/19] furosemide 20 mg tablet 20 mg PO BID #180 tab 08/02/18 [Rx Confirmed 03/10/19] spironolactone 25 mg tablet 25 mg PO QDAY #90 tab 09/09/18 [Rx Confirmed 03/10/19] hydralazine 10 mg tablet See Rx Instructions .ROUTE .COMPLEX #270 tablet 11/11/18 [Rx Confirmed 03/10/19] levothyroxine 75 mcg tablet 75 mcg PO DAILY #90 tab 02/24/19 [Rx Confirmed 03/10/19] ramipril 2.5 mg capsule 2.5 mg PO DAILY cap 03/10/19 [History] [facility] Medical History Atherosclerosis of coronary artery bypass graft without angina pectoris (Chronic) Ischemic cardiomyopathy (Acute) Idiopathic pulmonary hypertension (Acute) Cardiomyopathy in other diseases classified elsewhere (Acute) Left atrial enlargement (Acute) Long-term use of high-risk medication (Acute) Hyperlipidemia (Chronic) Chronic systolic CHF (congestive heart failure) (Chronic) Anemia (Acute) Cardiac arrest with ventricular fibrillation (Acute) Chest pain (Acute) Dyspnea (Acute) Edema (Acute) Fatigue (Acute) Gout (Acute) Syncope and collapse (Acute) Type 2 diabetes mellitus (Acute) Hypothyroidism, iatrogenic (Chronic) Aneurysm of heart (Resolved) Atherosclerotic heart disease of [place] coronary artery without angina pectoris (Inactive) Surgical History Aortocoronary bypass status (Chronic ~10/2005) Automatic implantable cardiac defibrillator in situ (Resolved ~02/2012) Family History Father Myocardial infarction Mother CAD (coronary artery disease) Hypertension Brother Hypertension Sister Hypertension Diabetes Sister Hypertension Diabetes Social History (Updated 03/10/19 @ 16:04 by Aaron Velez MD) Smoking Status: Former smoker alcohol intake: never substance use type: does not use ROS Const Const: Negative for fatigue, weakness, frequent falls, excessive sweating, weight gain or weight loss Eyes Eyes: Negative for transient loss of vision, blurry vision or change in vision ENT ENT: Negative for dizziness or balance problems Cardio Chest Pain: No Palpitations: No Edema: None Muscle aches with walking: None Resp Respiratory: Negative for SOB with activity or SOB at rest GI GI: Negative vomiting or vomiting blood/hematemesis : Negative for hematuria Musc Musc: Negative for muscle aches/ myalgia, muscle weakness, joint pain or balance problems Skin Skin: Negative non-healing lesions or rash Neuro Neuro: Negative for dizziness, lightheadedness, orthostatic symptoms, frequent falls, weakness or blurry vision [place] Hematologic/Lymphatic: Negative for easy bleeding Endo Endo: Negative for fatigue or excessive sweating Psych Psych: Negative for anxiety or depression Allergy Allergy/Immunology: Negative for hives, Negative for rash Cardiology Exam Const Appearance: cooperative, healthy appearing, comfortable, no acute distress, well developed and well groomed Nutritional Appearance: average body habitus and well nourished Orientation: alert, awake and oriented x3 Head Head: normal to inspection, normocephalic and atraumatic Ears: hearing grossly normal bilaterally Nose: external nose normal Face and Sinus: face symmetric Mouth: oral mucosae normal Teeth and gingiva: fair dentition Eyes Eyelids: eyelids normal Conjunctivae: conjunctivae normal Pupils: PERRL EOM: EOM intact bilaterally Neck Neck: normal visual inspection, full ROM and no JVD Carotids: normal carotid upstroke Chest Chest inspection: normal inspection of the chest, symmetric chest movement, Pacemaker/ICD Yes left pectoral incision and normal respiratory effort; negative cough Auscultation: Bilateral: Clear to Auscultation Cardio Rate: regular rate Rhythm: regular rhythm Heart sounds: S1 normal and S2 normal; negative rub, gallop or murmur GI GI: normal to inspection, soft and bowel sounds present Neuro General: alert, awake, oriented x3 and moves all extremities Skin Skin: no rashes or lesions noted Extremities Pulses: Normal: Right Posterior Tibial Pulse, Left Posterior Tibial Pulse, Right Radial Pulse, Left Radial Pulse Lower Extremity Edema: None: Bilateral Bilateral lower extremity discoloration Psych Psychological: normal affect Assessment & Plan 1. Atherosclerosis of coronary artery bypass graft of [place] heart without angina pectoris I25.810 CABG x3 VELASQUEZ to LAD, SERENA as pedicle graft to 2nd OM, SVG to posterolateral branck of RCA, Apical and inferior Aneuysmectomy 10/2005 Plan At the present time he appears to be doing well. He will continue his current medical management and follow-up. Orders Orders: 12 Lead EKG performed by [facility] Today 2. H/O percutaneous transluminal coronary angioplasty Z98.61 Performed on a 99% lesion of the second obtuse marginal on 02/07/2012 at [facility]; Plan He is undergone revascularization in the past. He appears to be doing well at this time. He will continue to be Orders Orders: 12 Lead EKG performed by [facility] Today 3. Postsurgical aortocoronary bypass status Z95.1 CABG x3 VELASQUEZ to LAD, SERENA as pedicle graft to 2nd OM, SVG to posterolateral branch of RCA, Apical and inferior Aneuysmectomy 10/2005 4. Cardiomyopathy, ischemic I25.5 Plan He will continue evaluation care as noted above. He does have a history of underlying ischemic mediated cardiomyopathy. He is on medical management. He is without acute symptoms. He will continue his medical therapy. Orders Orders: 12 Lead EKG performed by [facility] Today 5. Chronic systolic CHF (congestive heart failure) I50.22 Plan There is been no report of acute CHF or pulmonary edema. He will continue medical therapy and follow-up. 6. Automatic implantable cardiac defibrillator in situ Z95.810 Bi-V ICD Plan He is scheduled for upcoming ICD generator change. He will undergo laboratory studies and radiologic studies as deemed appropriate. 7. Hyperlipidemia, unspecified hyperlipidemia type E78.5 Plan His lipid labs were reviewed. He will continue medical management. 8. Essential hypertension I10 Plan His blood pressure is under good control. He will continue his medical therapy. Plan Detail Other Orders Orders: 12 Lead EKG performed by [facility] Today Z79.899 Pulmonary Function Test (Comp) Today Z79.899 Additional Comments Based on being on amiodarone therapy he will also be scheduled for his follow-up PFTs. Thank you for allowing me to participate in the care of your patient. Please don't hesitate to call if any issues arise. This note was generated using a voice recognition system and there may be incorrect words, spelling or punctuation that were not noted when reviewing the office note prior to saving. Follow Up 3 Months (PFM) Coding Level of Care Code Off vis,est,level 4 Diagnoses Atherosclerosis of coronary artery bypass graft of [place] heart without angina pectoris I25.810 ??[place] vs. transplanted heart: [place] heart H/O percutaneous transluminal coronary angioplasty Z98.61 Postsurgical aortocoronary bypass status Z95.1 Cardiomyopathy, ischemic I25.5 Chronic systolic CHF (congestive heart failure) I50.22 Automatic implantable cardiac defibrillator in situ Z95.810 Hyperlipidemia, unspecified hyperlipidemia type E78.5 ??Hyperlipidemia type: unspecified Essential hypertension I10 Coding Level of Care Code Off vis,est,level 4 Diagnoses Atherosclerosis of coronary artery bypass graft of [place] heart without angina pectoris I25.810 ??[place] vs. transplanted heart: [place] heart H/O percutaneous transluminal coronary angioplasty Z98.61 Postsurgical aortocoronary bypass status Z95.1 Cardiomyopathy, ischemic I25.5 Chronic systolic CHF (congestive heart failure) I50.22 Automatic implantable cardiac defibrillator in situ Z95.810 Hyperlipidemia, unspecified hyperlipidemia type E78.5 ??Hyperlipidemia type: unspecified Essential hypertension I10 Supplemental Info Supplemental Information He had a dense thoracic echocardiogram on 10/29/2012 Summary: The study was technically difficult. Contrast injection was performed. Severely dilated left ventricle. Severe segmental systolic dysfunction (see wail motion). The estimated ejection fraction is 15 %. The left atrium is moderately enlarged. The right atrium is mildly enlarged. There is mild annular annular calcification. Mild papillary muscle dysfunction of the mitral valve. Trivial mitral valve insufficiency. Mild tricuspid valve insufficiency. Aortic sclerosis, no stenosis. Right ventricular systolic pressure estimated to be 33 mmHg. Transmitral doppler flow suggestive of impaired relaxation of left ventricle lCD or pacer leads identified within the right atrium lCD or pacer leads identified within the right ventricle He had a stress test performed on 01/02/2006 CONCLUSION: 1. Technically adequate (%PMHR>85%) ETT. 2. Peak exercise ECG with no obvious diagnostic NEC evidence of myocardial ischemia at the heart rate achieved. ECG evidence of myocardial ischemia at a higher rate cannot be excluded. He had a cardiac catheterization performed on 10/27/2005 FINAL IMPRESSION 1. Elevated left ventricular end-diastolic pressure compatible with decreased LV systolic function. 2. Secondary pulmonary hypertension. 3. Oxygen saturations, no obvious evidence of intracardiac shunting phenomenon. 4. Left ventricle. Severe segmental left ventricular systolic dysfunction with severe hypokinesis of the distal anterior, anterior apical segment and akinesis of the mid diaphragmatic and inferior apical segment with an estimate LVEF of 15% 5. Left main. Angiographic venkatesh]. 1. LAD. Anterior trunk - proximal tapering toward the sepia] planting supervisor system with diffuse 25 eccentric appearing stenosis. a> At the level of the septal planting supervisor, there is 85-95% irregular eccentric appearing stenosis. b> Remainder of the LAD system with minimal luminal irregularities appearing to fill late and somewhat faintly but appearing patent. 7. LCX. Proximal (pro CM branch) 85% eccentric appearing stenosis. 8. RCA, Proximal to distal diffuse 25?50% irregular appearing stenosis with additional findings of segments suspicious for ulcerated plaque. a> Right PA proximally subtotally occuluded with remainder of the vessel filling late and faintly. 9. Abdominal aorta: patent. b) Bilateral renal artery patent with no obvious angiographic evidence of significant renal artery stenosis. He had a PCI performed on 02/07/2012 at [facility] Summary: Coronary circulation: Bypass grafts were diseased. Severe coronary calcification was present. 1st lesion interventions; A successful balloon angioplasty was performed on the 99 % lesion in the 2nd obtuse marginal. Following intervention there was an excellent angiographic appearance with a 10 % residual stenosis. His previous open heart surgery was performed on 11/03/2005 at [facility] at which time he received a VELASQUEZ to the LAD, SERENA to the second OM, and an SVG to the right posterior lateral branch as well as a left ventricular apical and inferior aneurysmectomy He does have a biventricular ICD in place [employer] F[employer] Helper: June Blackbox Name: [employer] VR Model #: [id number] Serial #: [id number] Date Implanted: 02/08/2012 Device Characteristics Device: Biventricular Type: Implantable defibrillator Labs LDL Cholesterol 35 mg/dL (0-130) 01/31/19 HDL Cholesterol 23 mg/dL (40-) L 01/31/19 Triglycerides 300 mg/dL (-199) H 01/31/19 VLDL Cholesterol 60 mg/dL (5-40) H 01/31/19 Diagnostics Pacemaker Check 03/10/19 Chest X-Ray 02/19/18 Pulmonary Pulmonary Function Test 02/19/18 03/10/19 1604 <Electronically signed by Aaron bryan MD> Date _ Aaron Velez MD I have re-examined the patient. There are no clinical changes since date of exam.
[2019-03-10 15:22] VITALS: BMI 31.4
--- NOTE | 2019-03-10 16:20 | RAD_ITS ---
STUDY: X-RAY CHEST REASON FOR EXAM: Male, 58 years old. Pre-op generator change. TECHNIQUE: PA and lateral views of the chest. COMPARISON: February 19, 2018. FINDINGS: There is a minimally decreased inspiratory effort when compared to prior study. There is mild linear atelectasis at the right lung base. Lungs are otherwise clear. There is no demonstrated pleural abnormality. Sternal cerclage wires are present from a prior sternotomy. The heart is mildly enlarged. Stable cardiac pacemaker. Normal mediastinum and bridget. Normal visualized pulmonary arteries. There is atherosclerotic calcification of the aortic arch with tortuosity. There are diffuse degenerative changes of the visualized thoracic spine. There is degenerative osteoarthritis of the bilateral shoulders. There is no demonstrated abnormality of the visualized soft tissue structures of the upper abdomen. RAD/Chest PA and Lateral IMPRESSION: 1. Cardiac pacemaker unchanged from prior study. 2. Stable cardiomegaly with evidence of median sternotomy. 3. Mildly decreased inspiratory effort with minimal right basal atelectasis. Electronically Signed: Theo Glover DO at 22:01 EST Tel [phone], Service support ,
[2019-03-20 08:37] VITALS: BMI 31.4
--- NOTE | 2019-03-20 09:42 | HP.PCM_ITS ---
History and Physical Date of Admission: 03/20/19 NATHALY COPPOLA, is a 58 year old white male who presents here today for a generator change for his ICD. 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 His left heel is recovering from a previous pressure sore. He states that he is still wearing his surgical boot to protect it. However he notes that it is not actively infected at this time. He is not on continued antibiotics. He does not have any chest discomfort/heaviness/tightness. He does not have any worsening symptoms of shortness of breath. He denies any PND. He does not have any orthopnea. He does not have any symptoms of congestive heart failure. He does not have any palpitations that he is aware of. He does not have any lightheadedness or dizziness. He does not have any near-syncope or syncope. Intake VS: see chart Allergies No Known Allergies Allergy (Verified 03/10/19 15:23) Medications aspirin 81 mg tablet,delayed release 81 mg PO QDAY 05/10/17 [History Confirmed 03/10/19] cholecalciferol (vitamin D3) 2,000 unit capsule 2,000 unit PO QDAY cap 05/10/17 [History Confirmed 03/10/19] febuxostat 80 mg tablet 80 mg PO QDAY 05/10/17 [History Confirmed 03/10/19] ferrous gluconate 324 mg (38 mg iron) tablet 324 mg PO TID tab 05/10/17 [History Confirmed 03/10/19] gemfibrozil 600 mg tablet 600 mg PO BID 05/10/17 [History Confirmed 03/10/19] metformin 500 mg tablet 500 mg PO BID 05/10/17 [History Confirmed 03/10/19] nitroglycerin 0.4 mg sublingual tablet 0.4 mg SUBLINGUAL Q5M PRN 05/10/17 [History Confirmed 03/10/19] glimepiride 1 mg tablet 2 mg PO QAM tab 02/11/18 [History Confirmed 03/10/19] icosapent ethyl 1 gram capsule 1 g PO BID cap 02/11/18 [History Confirmed 03/10/19] amiodarone 200 mg tablet 200 mg PO QDAY #90 tab 02/12/18 [Rx Confirmed 03/10/19] carvedilol 12.5 mg tablet 12.5 mg PO BID #180 tab 03/25/18 [Rx Confirmed 03/10/19] atorvastatin 20 mg tablet 20 mg PO QDAY #90 tab 07/05/18 [Rx Confirmed 03/10/19] furosemide 20 mg tablet 20 mg PO BID #180 tab 08/02/18 [Rx Confirmed 03/10/19] spironolactone 25 mg tablet 25 mg PO QDAY #90 tab 09/09/18 [Rx Confirmed 03/10] hydralazine 10 mg tablet See Rx Instructions .ROUTE .COMPLEX #270 tablet 11/11/18 [Rx Confirmed 03/10/19] levothyroxine 75 mcg tablet 75 mcg PO DAILY #90 tab 02/24/19 [Rx Confirmed 03/10/19] ramipril 2.5 mg capsule 2.5 mg PO DAILY cap 03/10/19 [History] [facility] Medical History Atherosclerosis of coronary artery bypass graft without angina pectoris (Chronic) Ischemic cardiomyopathy (Acute) Idiopathic pulmonary hypertension (Acute) Cardiomyopathy in other diseases classified elsewhere (Acute) Left atrial enlargement (Acute) Long-term use of high-risk medication (Acute) Hyperlipidemia (Chronic) Chronic systolic CHF (congestive heart failure) (Chronic) Anemia (Acute) Cardiac arrest with ventricular fibrillation (Acute) Chest pain (Acute) Dyspnea (Acute) Edema (Acute) Fatigue (Acute) Gout (Acute) Syncope and collapse (Acute) Type 2 diabetes mellitus (Acute) Hypothyroidism, iatrogenic (Chronic) Aneurysm of heart (Resolved) Atherosclerotic heart disease of [place] coronary artery without angina pectoris (Inactive) Surgical History Aortocoronary bypass status (Chronic ~10/2005) Automatic implantable cardiac defibrillator in situ (Resolved ~02/2012) Family History Father Myocardial infarction Mother CAD (coronary artery disease) Hypertension Brother Hypertension Sister Hypertension Diabetes Sister Hypertension Diabetes Social History (Updated 03/10/19 @ 16:04 by Aaron Velez MD) Smoking Status: Former smoker alcohol intake: never substance use type: does not use ROS Const Const: Negative for fatigue, weakness, frequent falls, excessive sweating, weight gain or weight loss Eyes Eyes: Negative for transient loss of vision, blurry vision or change in vision ENT ENT: Negative for dizziness or balance problems Cardio Chest Pain: No Palpitations: No Edema: None Muscle aches with walking: None Resp Respiratory: Negative for SOB with activity or SOB at rest GI GI: Negative vomiting or vomiting blood/hematemesis : Negative for hematuria Musc Musc: Negative for muscle aches/ myalgia, muscle weakness, joint pain or balance problems Skin Skin: Negative non-healing lesions or rash Neuro Neuro: Negative for dizziness, lightheadedness, orthostatic symptoms, frequent falls, weakness or blurry vision [place] Hematologic/Lymphatic: Negative for easy bleeding Endo Endo: Negative for fatigue or excessive sweating Psych Psych: Negative for anxiety or depression Allergy Allergy/Immunology: Negative for hives, Negative for rash Cardiology Exam Const Appearance: cooperative, healthy appearing, comfortable, no acute distress, well developed and well groomed Nutritional Appearance: average body habitus and well nourished Orientation: alert, awake and oriented x3 Head Head: normal to inspection, normocephalic and atraumatic Ears: hearing grossly normal bilaterally Nose: external nose normal Face and Sinus: face symmetric Mouth: oral mucosae normal Teeth and gingiva: fair dentition Eyes Eyelids: eyelids normal Conjunctivae: conjunctivae normal Pupils: PERRL EOM: EOM intact bilaterally Neck Neck: normal visual inspection, full ROM and no JVD Carotids: normal carotid upstroke Chest Chest inspection: normal inspection of the chest, symmetric chest movement, Pacemaker/ICD Yes left pectoral incision and normal respiratory effort; negative cough Auscultation: Bilateral: Clear to Auscultation Cardio Rate: regular rate Rhythm: regular rhythm Heart sounds: S1 normal and S2 normal; negative rub, gallop or murmur GI GI: normal to inspection, soft and bowel sounds present Neuro General: alert, awake, oriented x3 and moves all extremities Skin Skin: no rashes or lesions noted Extremities Pulses: Normal: Right Posterior Tibial Pulse, Left Posterior Tibial Pulse, Right Radial Pulse, Left Radial Pulse Lower Extremity Edema: None: Bilateral Bilateral lower extremity discoloration Psych Psychological: normal affect Assessment & Plan 1. Atherosclerosis of coronary artery bypass graft of [place] heart without angina pectoris I25.810 CABG x3 VELASQUEZ to LAD, SERENA as pedicle graft to 2nd OM, SVG to posterolateral branck of RCA, Apical and inferior Aneuysmectomy 10/2005 At the present time he appears to be doing well. He will continue his current medical management and follow-up. 2. H/O percutaneous transluminal coronary angioplasty Z98.61 Performed on a 99% lesion of the second obtuse marginal on 02/07/2012 at [facility]; He is undergone revascularization in the past. He appears to be doing well at this time. He will continue to be 3. Cardiomyopathy, ischemic I25.5 He will continue evaluation care as noted above. He does have a history of underlying ischemic mediated cardiomyopathy. He is on medical management. He is without acute symptoms. He will continue his medical therapy. 4. Chronic systolic CHF (congestive heart failure) I50.22 There is been no report of acute CHF or pulmonary edema. He will continue medical therapy and follow-up. 5. Automatic implantable cardiac defibrillator in situ Z95.810 He is scheduled to have his ICD generator change today. He will follow up accordingly 7. Hyperlipidemia, unspecified hyperlipidemia type E78.5 His lipid labs were reviewed. He will continue medical management. 8. Essential hypertension I10 His blood pressure is under good control. He will continue his medical therapy.
--- NOTE | 2019-03-20 11:07 | PCM.OPRPT ---
Report of Operation Description of Procedure: Preoperative diagnosis is device at end of life for normal battery depletion. Postoperative diagnosis same as above. After informed consent and IV antibiotics the patient was brought to the Center catheterization laboratory and the skin over the device was prepped and draped in the usual sterile manner. Intermittent boluses of Versed, and fentanyl were used for sedation and analgesia as well as 1% subcutaneous lidocaine. An incision was made over the pre-existing device. Using blunt and Bovie dissection the pocket was opened and the device was removed. Careful attention was paid not to injure the pre-existing leads. The leads were removed from the device header and they were interrogated. There is normal lead function. Hemostasis was obtained. The pocket was flushed with antibiotic solution. The sponge and needle count were correct. The new device was brought to the field. The leads were placed in the appropriate position in the header and secured by the set screw. The leads and the device were then placed in the pocket. The pocket was closed with a deep layer of running 2-0 Vicryl, a superficial layer of running 4-0 Vicryl, skin with Steri-Strips which were covered with a rolled 4 x 4 and Tegaderm. Patient left the room with the device programmed to proper parameters and there were no complications. The device is a Biventricular ICD. All lead parameters were tested and found to be functionally normal. Lead and device serial and model numbers are available in the chart documents provided by the device company public health representative procedure summary.
== END 2019-03-20 12:35 | disposition home or self-care (01) ==
LOC: CLSP 08:04
PROVIDERS: Family Provider Family Medicine; PCP Family Medicine; Referring Provider Internal Medicine Cardiovascular Disease; Visit Provider Internal Medicine Cardiovascular Disease
DX: Z95.810 Presence of automatic (implantable) cardiac defibrillator (principal); I25.810 Atherosclerosis of coronary artery bypass graft(s) without angina pectoris; I25.5 Ischemic cardiomyopathy; I11.0 Hypertensive heart disease with heart failure; I50.22 Chronic systolic (congestive) heart failure; E78.5 Hyperlipidemia, unspecified; I27.0 Primary pulmonary hypertension; E11.9 Type 2 diabetes mellitus without complications; D64.9 Anemia, unspecified; E03.9 Hypothyroidism, unspecified; Z87.891 Personal history of nicotine dependence; Z98.61 Coronary angioplasty status; Z95.1 Presence of aortocoronary bypass graft; Z79.82 Long term (current) use of aspirin; Z79.84 Long term (current) use of oral hypoglycemic drugs; Z79.899 Other long term (current) drug therapy
CPT/HCPCS: 33264; 71046; 93641; 99152; 99153; J7040; J7050; J2405

== ENCOUNTER → 2019-10-22 | Outpatient (CLI) | payer MEDICARE, SELFPAY ==
[2019-06-23 12:47] VITALS: BMI 31.0
[2019-10-22 18:18] LABS: Absolute Lymphocyte Count 1.34 X10^3/uL (0.83-4.51); Absolute Neutrophil Count 4.2 X10^3/uL (2.0-7.7); Basophil# 0.06 X10^3/uL; Basophil% 0.9 % (0-1); Eosinophil# 0.26 X10^3/uL; Eosinophils% 3.9 % (0-5); Hemoglobin 12.1 g/dL (13.0-16.5); Lymphocyte # 1.34 X10^3/ul (4.0); Lymphocyte % 20.3 % (19-41); Mean Corpuscular Hgb 29.8 pg (27.0-32.0); Mean Corpuscular Volume 96.1 fL (80-94); Mean Platelet Vol. 10.6 fl (6.2-12.0); Monocyte# 0.72 X10^3/uL; Monocyte% 10.9 % (0-10); NRBC Flagged by Analyzer 0 % (0-5); Neutrophil % 63.5 % (47-70); Platelet Count 248 K/mm3 (150-450); RBC Distribution Width CV 15.2 % (11.6-14.6); RBC Distribution Width SD 53.3 fl (35.1-43.9); Red Blood Count 4.06 M/mm3 (4.6-6.2); White Blood Count 6.6 K/mm3 (4.4-11.0)
[2019-10-22 18:40] LABS: Anion Gap 6 (5-15); BUN 59 mg/dL (7-18); BUN/Creat Ratio 35.8 RATIO (10-20); Calcium,Total 8.9 mg/dL (8.5-10.1); Chloride 105 mmol/L (98-107); Cholesterol 94 mg/dL (200); Creatinine, Serum 1.65 mg/dL (0.70-1.30); EST Glomerular Filtration Rate 46 mL/min (>60); Est Glom Filt Rate - Afr Amer 55 mL/min (>60); Glucose 216 mg/dL (74-106); High Density Lipoprotein 16 mg/dL; Potassium 5.2 mmol/L (3.5-5.1); Sodium Level 136 mmol/L (136-145); Triglycerides 452 mg/dL
== END | disposition home or self-care (01) ==
LOC: MFPLAB 15:35
PROVIDERS: PCP Family Medicine; Visit Provider Family Medicine
DX: E11.9 Type 2 diabetes mellitus without complications (principal); D64.9 Anemia, unspecified
CPT/HCPCS: 36415; 80048; 80061; 85025

== ENCOUNTER → 2020-01-21 | Outpatient (CLI) | payer MEDICARE, SELFPAY ==
[2019-06-23 12:47] VITALS: BMI 31.0
[2020-01-21 20:20] LABS: Anion Gap 3 (5-15); BUN 56 mg/dL (7-18); BUN/Creat Ratio 30.9 RATIO (10-20); Calcium,Total 9.4 mg/dL (8.5-10.1); Chloride 109 mmol/L (98-107); Cholesterol 106 mg/dL (200); Creatinine, Serum 1.81 mg/dL (0.70-1.30); EST Glomerular Filtration Rate 41 mL/min (>60); Est Glom Filt Rate - Afr Amer 50 mL/min (>60); Glucose 196 mg/dL (74-106); High Density Lipoprotein 17 mg/dL; Sodium Level 137 mmol/L (136-145); Triglycerides 344 mg/dL; Very Low Density Lipoprotein 69 mg/dL (5-40)
== END | disposition home or self-care (01) ==
PROVIDERS: PCP Family Medicine; Referring Provider Family Medicine; Visit Provider Family Medicine
DX: E11.9 Type 2 diabetes mellitus without complications (principal)
CPT/HCPCS: 36415; 80048; 80061

== ENCOUNTER → 2020-01-26 | Outpatient (CLI) | payer MEDICARE, SELFPAY ==
[2019-06-23 12:47] VITALS: BMI 31.0
[2020-01-26 13:48] LABS: Anion Gap 10 (5-15); BUN 86 mg/dL (7-18); BUN/Creat Ratio 43.4 RATIO (10-20); Chloride 104 mmol/L (98-107); Creatinine, Serum 1.98 mg/dL (0.70-1.30); EST Glomerular Filtration Rate 37 mL/min (>60); Est Glom Filt Rate - Afr Amer 45 mL/min (>60); Glucose 71 mg/dL (74-106); Potassium 4.6 mmol/L (3.5-5.1); Sodium Level 136 mmol/L (136-145)
== END | disposition home or self-care (01) ==
PROVIDERS: PCP Family Medicine; Referring Provider Family Medicine; Visit Provider Family Medicine
DX: E87.5 Hyperkalemia (principal)
CPT/HCPCS: 36415; 80048

== ENCOUNTER → 2020-04-22 09:19 | Outpatient (CLI) | payer MEDICARE, SELFPAY ==
[2020-03-15 11:13] VITALS: BMI 30.1
[2020-04-22 10:34] LABS: Absolute Lymphocyte Count 0.94 X10^3/uL (0.83-4.51); Absolute Neutrophil Count 4.9 X10^3/uL (2.0-7.7); Basophil# 0.03 X10^3/uL; Basophil% 0.5 % (0-1); Eosinophil# 0.17 X10^3/uL; Eosinophils% 2.6 % (0-5); Hematocrit 44.8 % (40-54); Hemoglobin 13.7 g/dL (13.0-16.5); Lymphocyte # 0.94 X10^3/ul (4.0); Lymphocyte % 14.3 % (19-41); Mean Corp Hgb Conc 30.6 g/dL (32-36); Mean Corpuscular Hgb 28.8 pg (27.0-32.0); Mean Corpuscular Volume 94.3 fL (80-94); Mean Platelet Vol. 10.8 fl (6.2-12.0); Monocyte# 0.59 X10^3/uL; NRBC Flagged by Analyzer 0 % (0-5); Neutrophil # 4.85 X10^3/uL (2.7-7.7); Neutrophil % 73.4 % (47-70); Platelet Count 209 K/mm3 (150-450); RBC Distribution Width CV 14.2 % (11.6-14.6); RBC Distribution Width SD 49.1 fl (35.1-43.9); Red Blood Count 4.75 M/mm3 (4.6-6.2); White Blood Count 6.6 K/mm3 (4.4-11.0)
[2020-04-22 11:13] LABS: Anion Gap 6 (5-15); BUN 34 mg/dL (7-18); BUN/Creat Ratio 24.6 RATIO (10-20); Calcium,Total 9.3 mg/dL (8.5-10.1); Chloride 105 mmol/L (98-107); Cholesterol 96 mg/dL (200); Creatinine, Serum 1.38 mg/dL (0.70-1.30); EST Glomerular Filtration Rate 56 mL/min (>60); Est Glom Filt Rate - Afr Amer 68 mL/min (>60); Glucose 45 mg/dL (74-106); High Density Lipoprotein 22 mg/dL; Potassium 4.2 mmol/L (3.5-5.1); Sodium Level 141 mmol/L (136-145); Triglycerides 121 mg/dL; Very Low Density Lipoprotein 24 mg/dL (5-40)
== END ==
PROVIDERS: PCP Family Medicine; Referring Provider Family Medicine; Visit Provider Family Medicine
DX: E11.9 Type 2 diabetes mellitus without complications (principal); D64.9 Anemia, unspecified
CPT/HCPCS: 36415; 80048; 80061; 85025

== ENCOUNTER → 2020-09-29 12:53 | Outpatient (CLI) | payer MEDICARE, SELFPAY ==
[2020-09-22 10:25] VITALS: BMI 30.1
--- NOTE | 2020-09-29 12:56 | ECHOCS_ITS ---
Reason For Study: ASHD/CAD, Bi-V ICD. Procedure This was a 2D Doppler, Color Flow transthoracic echocardiogram. The study was technically difficult. Contrast injection was performed. Exam performed in department. Dr. Velez notified of efjection fraction at time of study. Left Ventricle Severely dilated left ventricle. Severe segmental systolic dysfunction (see wall motion). The estimated ejection fraction is 15 %. There is evidence of diastolic dysfunction. Anterio-Basal: Hypokinetic. Lateral-Basal: Hypokinetic. Posterior-Basal: Hypokinetic. Infero-Basal: Hypokinetic. Basal inferoseptal: Hypokinetic. Mid-Anterior : Hypokinetic. Mid-Lateral : Hypokinetic. Mid- Posterior: Hypokinetic. Mid-Inferior: Akinetic. Mid-inferoseptal : Akinetic. Mid-anteroseptal : Akinetic. [place] : Akinetic. Right Ventricle Normal RV size. ICD or pacer leads identified within the right ventricle. Normal systolic function. Atria The left atrium is moderately enlarged. The right atrium is mildly enlarged. ICD or pacer leads identified within the right atrium. No doppler evidence for ASD. Mitral Valve There is moderate mitral annular calcification. Extension of the mitral annular calcification on the base of the posterior mitral valve leaflet. Trivial mitral valve insufficiency. Tricuspid Valve Normal tricuspid valve. Trivial tricuspid valve insufficiency. Right ventricular systolic pressure estimated to be 40 mmHg. Aortic Valve Trisinus/trileaflet aortic valve. Mild focal aortic valve calcification. Pulmonic Valve The pulmonic valve is not well visualized. Trivial pulmonic valve insufficiency. Great Vessels Normal sized aortic root. Pericardium/Pleural No pericardial effusion. Medication 22 gauge I.V. with prn adaptor inserted into right arm. Diluted definity 3.0ml given slow IV push to enhance endocardial definition. MMode/2D Measurements & Calculations LVIDd: 8.6 cm IVSd: 0.99 cm Ao root diam: 3.3 cm LVIDs: 8.1 cm LVPWd: 0.99 cm RVDd: 4.7 cm FS: 5.7 % LAV(MOD-bp): 120.9 ml LA A4 area: 29.4 cm2 LA dimension(2D): 6.0 cm LAV(MOD-bp) Indexed: 52.0 ml/m2 LAV(MOD-sp2): 115.2 ml LAV(MOD-sp4): 114.3 ml RA A4 area: 18.7 cm2 Time Measurements MV dec time: 0.17 sec Doppler Measurements & Calculations MV E max efrain: 82.8 cm/sec Lat Peak E' Efrain: 2.5 cm/sec Med Peak E' Efrain: 1.7 cm/sec MV A max efrain: 78.2 cm/sec E/E' lat: 33.8 E/E' med: 47.5 MV E/A: 1.1 Ao V2 max: 123.0 cm/sec LV V1 max: 63.6 cm/sec PA V2 max: 105.2 cm/sec Ao max P.1 mmHg LV V1 max P.6 mmHg TR max efrain: 304.8 cm/sec TR max P.2 mmHg ECHO/Echo Complete W/ Contrast Interpretation Summary The study was technically difficult. Contrast injection was performed. Severely dilated left ventricle. Severe segmental systolic dysfunction (see wall motion). The estimated ejection fraction is 15 %. The left atrium is moderately enlarged. The right atrium is mildly enlarged. There is moderate mitral annular calcification. Extension of the mitral annular calcification on the base of the posterior mitr al valve leaflet. Trivial mitral valve insufficiency. Trivial tricuspid valve insufficiency. Mild focal aortic valve calcification. Trivial pulmonic valve insufficiency. Right ventricular systolic pressure estimated to be 40 mmHg. There is evidence of diastolic dysfunction. ICD or pacer leads identified within the right atrium ICD or pacer leads identified within the right ventricle. Ordering Physician: Aaron Velez Referring Physician: Aaron Ham Performed By: Jami Goodwin, RDCS, RVT
== END ==
PROVIDERS: PCP Family Medicine; Referring Provider Internal Medicine Cardiovascular Disease; Visit Provider Internal Medicine Cardiovascular Disease
DX: I25.810 Atherosclerosis of coronary artery bypass graft(s) without angina pectoris (principal)
CPT/HCPCS: 93306; Q9957; A4216; C8929; J3490

== ENCOUNTER → 2020-10-21 10:29 | Outpatient (CLI) | payer MEDICARE, SELFPAY ==
[2020-09-22 10:25] VITALS: BMI 30.1
[2020-10-21 12:45] LABS: Anion Gap 5 (5-15); BUN 51 mg/dL (7-18); BUN/Creat Ratio 34.9 RATIO (10-20); Calcium,Total 9.4 mg/dL (8.5-10.1); Chloride 105 mmol/L (98-107); Cholesterol 104 mg/dL (200); Creatinine, Serum 1.46 mg/dL (0.70-1.30); EST Glomerular Filtration Rate 52 mL/min (>60); Est Glom Filt Rate - Afr Amer 63 mL/min (>60); Glucose 126 mg/dL (74-106); High Density Lipoprotein 23 mg/dL; Potassium 4.8 mmol/L (3.5-5.1); Sodium Level 139 mmol/L (136-145); Triglycerides 168 mg/dL; Very Low Density Lipoprotein 34 mg/dL (5-40)
== END ==
PROVIDERS: PCP Family Medicine; Referring Provider Family Medicine; Visit Provider Family Medicine
DX: E11.9 Type 2 diabetes mellitus without complications (principal)
CPT/HCPCS: 36415; 80048; 80061

== ENCOUNTER 2021-05-20 11:29 | Outpatient (CLI) | payer MEDICARE, SELFPAY ==
[2021-05-20 15:27] LABS: Absolute Lymphocyte Count 1.17 X10^3/uL (0.83-4.51); Absolute Neutrophil Count 4.4 X10^3/uL (2.0-7.7); Basophil# 0.05 X10^3/uL; Basophil% 0.8 % (0-1); Eosinophil# 0.27 X10^3/uL; Eosinophils% 4.1 % (0-5); Hematocrit 46.2 % (40-54); Hemoglobin 14.7 g/dL (13.0-16.5); Lymphocyte # 1.17 X10^3/ul (0.83-4.51); Lymphocyte % 17.7 % (19-41); Mean Corp Hgb Conc 31.8 g/dL (32-36); Mean Corpuscular Hgb 29.4 pg (27.0-32.0); Mean Corpuscular Volume 92.4 fL (80-94); Mean Platelet Vol. 11.1 fl (6.2-12.0); Monocyte# 0.65 X10^3/uL; Monocyte% 9.8 % (0-10); NRBC Flagged by Analyzer 0 % (0-5); Neutrophil # 4.44 X10^3/uL (2.7-7.7); Neutrophil % 67.3 % (47-70); Platelet Count 183 K/mm3 (150-450); RBC Distribution Width CV 15.2 % (11.6-14.6); RBC Distribution Width SD 51.1 fl (35.1-43.9); White Blood Count 6.6 K/mm3 (4.4-11.0)
[2021-05-20 15:47] LABS: Anion Gap 5 (5-15); BUN 41 mg/dL (7-18); BUN/Creat Ratio 30.6 RATIO (10-20); Chloride 104 mmol/L (98-107); Cholesterol 121 mg/dL (200); Creatinine, Serum 1.34 mg/dL (0.70-1.30); EST Glomerular Filtration Rate 58 mL/min (>60); Est Glom Filt Rate - Afr Amer 70 mL/min (>60); Glucose 150 mg/dL (74-106); High Density Lipoprotein 21 mg/dL; Potassium 5.1 mmol/L (3.5-5.1); Sodium Level 139 mmol/L (136-145); Triglycerides 225 mg/dL; Very Low Density Lipoprotein 45 mg/dL (5-40)
[2021-05-20 15:54] LABS: Microalbumin:Creatinine Ratio 213.4 mg/g CRE (<30 mg/g CRE)
== END 2021-05-20 23:59 | disposition short-term general hospital (02) ==
LOC: MFPLAB 11:31
PROVIDERS: PCP Family Medicine; Referring Provider Family Medicine; Visit Provider Family Medicine
DX: E11.9 Type 2 diabetes mellitus without complications (principal); D64.9 Anemia, unspecified
CPT/HCPCS: 36415; 80048; 80061; 82043; 82570; 85025

== ENCOUNTER 2021-08-19 11:00 | Outpatient (CLI) | payer MEDICARE, SELFPAY ==
[2021-08-19 16:14] LABS: Anion Gap 10 (5-15); BUN 67 mg/dL (7-18); BUN/Creat Ratio 40.1 RATIO (10-20); Chloride 109 mmol/L (98-107); Creatinine, Serum 1.67 mg/dL (0.70-1.30); EST Glomerular Filtration Rate 45 mL/min (>60); Est Glom Filt Rate - Afr Amer 54 mL/min (>60); Free T3 2.3 pg/mL (2.18-3.98); Glucose 133 mg/dL (74-106); Potassium 5.9 mmol/L (3.5-5.1); Sodium Level 138 mmol/L (136-145); T4 Free Direct 1.08 ng/dL (0.76-1.46); Thyroid Stim Hormone (TSH) 1.29 uIU/mL (0.358-3.74)
== END 2021-08-19 23:59 | disposition home or self-care (01) ==
LOC: MFPLAB 11:04
PROVIDERS: PCP Family Medicine; Referring Provider Family Medicine; Visit Provider Family Medicine
DX: E03.9 Hypothyroidism, unspecified (principal); E11.9 Type 2 diabetes mellitus without complications
CPT/HCPCS: 36415; 80048; 84439; 84443; 84481

== ENCOUNTER → 2021-10-13 | Outpatient (CLI) | payer MEDICARE, SELFPAY ==
[2021-10-13 14:36] LABS: Hematocrit 47.1 % (40-54); Hemoglobin 15.3 g/dL (13.0-16.5); Mean Corp Hgb Conc 32.5 g/dL (32-36); Mean Corpuscular Hgb 30.1 pg (27.0-32.0); Mean Corpuscular Volume 92.5 fL (80-94); Platelet Count 195 K/mm3 (150-450); RBC Distribution Width CV 14.9 % (11.6-14.6); RBC Distribution Width SD 51.2 fl (35.1-43.9); Red Blood Count 5.09 M/mm3 (4.6-6.2); White Blood Count 6.3 K/mm3 (4.4-11.0)
[2021-10-13 15:08] LABS: Anion Gap 6 (5-15); BUN 63 mg/dL (7-18); BUN/Creat Ratio 34.6 RATIO (10-20); Calcium,Total 9.2 mg/dL (8.5-10.1); Chloride 108 mmol/L (98-107); Creatinine, Serum 1.82 mg/dL (0.70-1.30); EST Glomerular Filtration Rate 40 mL/min (>60); Est Glom Filt Rate - Afr Amer 49 mL/min (>60); Glucose 89 mg/dL (74-106); Magnesium 2.2 mg/dL (1.6-2.6); Potassium 4.8 mmol/L (3.5-5.1); Sodium Level 139 mmol/L (136-145); T4 Free Direct 1.04 ng/dL (0.76-1.46); Thyroid Stim Hormone (TSH) 1.11 uIU/mL (0.358-3.74)
[2021-10-13 17:24] LABS: AST(SGOT) 26 U/L (15-37); Alanine Aminotransfer ALT/SGPT 31 U/L (16-61); Alkaline Phosphatase 42 U/L (45-117); Bilirubin, Direct 0.16 mg/dL (0.00-0.30); Globulin 3.9 g/dL (2.2-4.2); Protein, Total 7.9 g/dL (6.4-8.2)
== END | disposition home or self-care (01) ==
LOC: LAB 13:30
PROVIDERS: PCP Family Medicine; Visit Provider Internal Medicine Cardiovascular Disease
DX: I25.5 Ischemic cardiomyopathy (principal); I43 Cardiomyopathy in diseases classified elsewhere; I50.22 Chronic systolic (congestive) heart failure; I25.810 Atherosclerosis of coronary artery bypass graft(s) without angina pectoris; Z95.810 Presence of automatic (implantable) cardiac defibrillator
CPT/HCPCS: 36415; 80048; 80076; 83735; 84439; 84443; 85027

== ENCOUNTER → 2021-10-25 | Outpatient (CLI) | payer MEDICARE, SELFPAY ==
--- NOTE | 2021-10-25 08:25 | STRESSREP ---
Stress Test Report Date: 10-25-2021 Procedure: Pharmacologic stress nuclear imaging study Indications: Cardiac dysrhythmia; ventricular tachycardia; status post ICD discharge; CAD; PCI; CABG; ischemic mediated cardiomyopathy; status post left ventricular aneurysmectomy; chronic systolic mediated CHF; hyperlipidemia; hypertension Consent: Per the patient Procedure: The patient underwent pharmacologic (Regadenoson 0.4mg ) evaluation with a peak heart rate of 60 beats per minute (37%predicted maximal heart rate) and a peak blood pressure of 122/74 mmHg. The baseline ECG demonstrated electronic ventricular paced rhythm. The peak pharmacologic ECG demonstrated electronic ventricular paced rhythm. There were no cardiac dysrhythmias pretest, during pharmacologic infusion, or recovery. There was no complaint of chest discomfort during pharmacologic infusion or recovery. The examination was discontinued secondary to completion of protocol. Impression: 1. Pharmacologic (Regadenoson) evaluation 2. Peak pharmacologic ECG with electronic ventricular paced rhythm. 3. There were no cardiac dysrhythmias pretest, during pharmacologic infusion, or recovery. 4. Nuclear images pending Myocardial perfusion imaging study: Technique: The patient was injected with 14.9 millicuries of technetium 99m Cardiolite and subsequently rest SPECT Cardiolite nuclear imaging was obtained in the horizontal long, vertical long, and short axis views. The patient underwent pharmacologic (Regadenoson) evaluation with a peak heart rate of 60 beats per minute (37% percent predicted maximal heart rate) and a peak blood pressure of 122/74 mmHg. The patient was injected with 45.0 millicuries of technetium 99m Cardiolite and subsequently stress SPECT Cardiolite nuclear imaging was obtained in the horizontal long, vertical long, and short axis views. A gated Cardiolite study at peak stress was obtained. Interpretation: Rest and stress SPECT Cardiolite nuclear imaging status post realignment, normalization, and attenuation correction demonstrate the appearance of diminished absence of myocardial perfusion/tracer uptake in portions of the mid to distal anterior, anteroseptal, distal lateral, basal to distal inferolateral segments, and apical segments which appears to be somewhat more prominent following stress and areas involving the anterior, anteroseptal, and anterolateral segments. There is diminished end-systolic thickening and brightening. The gated Cardiolite study demonstrates diminished myocardial thickening and inward wall motion. The reported LVEF is 14%. Impression: 1. Rest and stress SPECT current nuclear imaging demonstrate myocardial perfusion changes compatible with an area of previous myocardial injury/infarction involving portions of the anterior, anteroseptal, anterolateral, inferolateral, and apical segments with post-rest myocardial perfusion changes appearing compatible with mild akash-infarct related myocardial ischemia involving portions of the anterior, anteroseptal, and anterolateral segments. 2. The gated Cardiolite study reports an LVEF of 14%. This note was generated with [employer] software. It may contain incorrect words, spelling, and punctuation that were not noted in checking the note before signing.
== END | disposition home or self-care (01) ==
LOC: CVS 06:48
PROVIDERS: PCP Family Medicine; Referring Provider Internal Medicine Cardiovascular Disease; Visit Provider Internal Medicine Cardiovascular Disease
DX: I47.2 Ventricular tachycardia (principal); R94.31 Abnormal electrocardiogram [ECG] [EKG]
CPT/HCPCS: 78452; 93017; A9500; A4216; J2785

== ENCOUNTER → 2021-11-10 | Outpatient (CLI) | payer MEDICARE, SELFPAY ==
--- NOTE | 2021-11-10 09:43 | ECHOCS_ITS ---
Reason For Study: CAD/ASHD Procedure This was a 2D Doppler, Color Flow transthoracic echocardiogram. The study was technically difficult. Contrast injection was performed. Exam performed in department. Left Ventricle Severely dilated left ventricle. Severe segmental systolic dysfunction (see wall motion). The estimated ejection fraction is 20 %. There is evidence of diastolic dysfunction. Lateral-Basal: Hypokinetic. Posterior-Basal: Hypokinetic. Infero-Basal: Severely Hypokinetic. Mid-Anterior : Hypokinetic. Mid-Lateral : Severely Hypokinetic. Mid-Posterior: Akinetic. Mid-Inferior: Akinetic. Mid-inferoseptal : Severly Hypokinetic. Mid-anteroseptal : Severely Hypokinetic. Anterior [place] : Akinetic. Inferior [place] : Not visualized. Lateral [place] : Akinetic. Septal [place] : Akinetic. Right Ventricle Normal RV size. ICD or pacer leads identified within the right ventricle. Normal systolic function. Atria The left atrium is severely enlarged. The right atrium is mildly enlarged. ICD or pacer leads identified within the right atrium. No doppler evidence for ASD. Mitral Valve There is mild mitral annular calcification. Anterior leaflet diffuse mitral valve thickening. Trivial mitral valve insufficiency. Tricuspid Valve Normal tricuspid valve. Trivial tricuspid valve insufficiency. Right ventricular systolic pressure estimated to be 40 mmHg. Aortic Valve Trisinus/trileaflet aortic valve. Mild focal aortic valve thickening. Mild focal aortic valve calcification. Pulmonic Valve The pulmonic valve is not well visualized. Great Vessels Normal sized aortic root. Pericardium/Pleural Trivial pericardial effusion. There are no echocardiographic indications of cardiac tamponade. Medication 22 gauge I.V. with prn adaptor inserted into right arm. Diluted definity 4ml given slow IV push to enhance endocardial definition. MMode/2D Measurements & Calculations LVIDd: 8.1 cm IVSd: 1.3 cm Ao root diam: 3.3 cm LVIDs: 7.1 cm LVPWd: 1.1 cm RVDd: 4.7 cm FS: 12.1 % LAV(MOD-bp): 114.5 ml LVAd ap4: 63.5 cm2 SV(MOD-sp4): 89.1 ml LAV(MOD-bp) Indexed: 48.8 ml/m2 LVLd ap4: 9.7 cm LAV(MOD-sp2): 105.6 ml EDV(MOD-sp4): 340.3 ml LAV(MOD-sp4): 112.5 ml EDV(sp4-el): 353.3 ml LVAs ap4: 52.8 cm2 LVLs ap4: 9.0 cm ESV(MOD-sp4): 251.2 ml ESV(sp4-el): 262.2 ml EF(MOD-sp4): 26.2 % EF(sp4-el): 25.8 % SV(sp4-el): 91.1 ml LA A4 area: 30.1 cm2 LA dimension(2D): 6.0 cm RA A4 area: 23.7 cm2 Time Measurements MV dec time: 0.24 sec Doppler Measurements & Calculations MV E max efrain: 105.0 cm/sec Lat Peak E' Efrain: 3.6 cm/sec Med Peak E' Efrain: 2.5 cm/sec MV A max efrain: 93.3 cm/sec E/E' lat: 29.0 E/E' med: 42.7 MV E/A: 1.1 Ao V2 max: 156.9 cm/sec LV V1 max: 72.8 cm/sec PA V2 max: 137.5 cm/sec Ao max P.8 mmHg LV V1 max P.1 mmHg TR max efrain: 305.1 cm/sec TR max P.2 mmHg ECHO/Echo Complete W/ Contrast Interpretation Summary The study was technically difficult. Contrast injection was performed. Severely dilated left ventricle. Severe segmental systolic dysfunction (see wall motion). The estimated ejection fraction is 20 %. The left atrium is severely enlarged. The right atrium is mildly enlarged. There is mild mitral annular calcification. Anterior leaflet diffuse mitral valve thickening. Trivial mitral valve insufficiency. Trivial tricuspid valve insufficiency. Mild focal aortic valve thickening. Mild focal aortic valve calcification. Trivial pericardial effusion. There are no echocardiographic indications of cardiac tamponade. Right ventricular systolic pressure estimated to be 40 mmHg. There is evidence of diastolic dysfunction. ICD or pacer leads identified within the right atrium ICD or pacer leads identified within the right ventricle. Comment: 2D echocardiographic images appearing potentially compatible with left ventricular apical aneurysmectomy. Ordering Physician: Aaron Velez Referring Physician: AARON DOE Performed By: Magdalena Zamorano, ALIDA
== END | disposition home or self-care (01) ==
LOC: CVS 09:42
PROVIDERS: PCP Family Medicine; Referring Provider Internal Medicine Cardiovascular Disease; Visit Provider Internal Medicine Cardiovascular Disease
DX: I25.10 Atherosclerotic heart disease of native coronary artery without angina pectoris (principal); I25.5 Ischemic cardiomyopathy
CPT/HCPCS: 93306; Q9957; A4216; C8929

== ENCOUNTER 2021-11-22 10:47 | Observation (INO) | payer MEDICARE, SELFPAY ==
--- NOTE | 2021-11-09 15:11 | RAD_ITS ---
STUDY: X-RAY CHEST REASON FOR EXAM: Male, 61 years old. Pre Procedure for Cardiac Cath TECHNIQUE: PA and lateral views of the chest. COMPARISON: Comparison is made with prior study 03/10/2019. FINDINGS: Stable mild increased linear markings at the lung bases suggestive of scarring. There is no demonstrated pleural abnormality. Sternal cerclage wires and vascular clips are present from a prior sternotomy and coronary artery bypass graft procedure (CABG). A left-sided dual-chamber pacemaker seen. Normal mediastinum and bridget. Normal visualized pulmonary arteries. There is atherosclerotic calcification of the aortic arch with tortuosity. There are diffuse degenerative changes of the visualized thoracic spine. Normal visualized ribs, clavicles, and shoulders. There is no demonstrated abnormality of the visualized soft tissue structures of the upper abdomen. RAD/Chest PA and Lateral IMPRESSION: No acute abnormality is seen. Electronically Signed: Russel Sanchez MD at 15:29 EDT ,
[2021-11-09 16:43] LABS: Hematocrit 45.3 % (40-54); Hemoglobin 14.4 g/dL (13.0-16.5); Mean Corp Hgb Conc 31.8 g/dL (32-36); Mean Corpuscular Hgb 30.1 pg (27.0-32.0); Mean Corpuscular Volume 94.6 fL (80-94); Platelet Count 196 K/mm3 (150-450); RBC Distribution Width CV 14.9 % (11.6-14.6); RBC Distribution Width SD 52.1 fl (35.1-43.9); Red Blood Count 4.79 M/mm3 (4.6-6.2); White Blood Count 5.9 K/mm3 (4.4-11.0)
[2021-11-09 17:05] LABS: International Normalized Ratio 1.1; Prothrombin Time (Protime)PT. 13.4 SECONDS (11.7-14.9)
[2021-11-09 17:06] LABS: Partial Thromboplast Time 31.6 Seconds (24.1-36.2)
[2021-11-09 17:17] LABS: Anion Gap 8 (5-15); BUN 55 mg/dL (7-18); BUN/Creat Ratio 27.6 RATIO (10-20); Calcium,Total 9.2 mg/dL (8.5-10.1); Chloride 106 mmol/L (98-107); Creatinine, Serum 1.99 mg/dL (0.70-1.30); EST Glomerular Filtration Rate 36 mL/min (>60); Est Glom Filt Rate - Afr Amer 44 mL/min (>60); Glucose 50 mg/dL (74-106); Potassium 4.8 mmol/L (3.5-5.1); Sodium Level 138 mmol/L (136-145)
[2021-11-21 08:50] VITALS: BMI 29.4
--- NOTE | 2021-11-21 09:25 | HP.PCM_ITS ---
History and Physical Date of Admission: 11/22/21 [facility] [address] [place], [place] [address] OFFICE VISIT Date of Service:? 11/09/21 MR#: [id number] Acct: [id number] Name:NATHALY DAWKINS Rep #: [id number] : 1960 Provider: ?VINH Barr Age/Sex:? 61/M [place] [facility] [place] Status: Signed HPI HPI History of Present Illness Surgical H&P: Yes Details: ?NATHALY COPPOLA, is a 61 M who presents to the office today for un updated HPI for an upcoming diagnostic heart cath for an abnormal stress test. This was done for VT noted on his ICD, he had a shock delivered during his sleep. 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 He tells me that he has not had any chest pain.? He does have some SOB with exertion, he has decreased doing activates because of this. He does not have any lightheadedness/dizziness.? He does not have any edema. He has not had any palpitations that he is aware of. Intake Vital Signs ? 04/25/2110:31 11/09/2210:34 Height 6 ft 2 in 6 ft 2 in Weight: ? 229 lb BMI ? 29.4 BP ? 122/70 H Pulse ? 50 L Pulse Oximetry (%) ? 94 Intake Visit Reasons:?UPDATE H&P FOR CATH Allergies No Known Allergies Allergy (Verified 04/25/21 10:31) Medications aspirin 81 mg tablet,delayed release 81 mg PO QDAY 05/10/17 [History Confirmed 11/09/21] cholecalciferol (vitamin D3) 50 mcg (2,000 unit) capsule 2,000 unit PO QDAY 05/10/17 [History Confirmed 11/09/21] febuxostat 80 mg tablet (Uloric) 80 mg PO QDAY 05/10/17 [History Confirmed 11/09/21] ferrous gluconate 324 mg (38 mg iron) tablet 324 mg PO TID 05/10/17 [History Confirmed 11/09/21] gemfibrozil 600 mg tablet 600 mg PO BID 05/10/17 [History Confirmed 11/09/21] metformin 500 mg tablet 500 mg PO BID 05/10/17 [History Confirmed 11/09/21] icosapent ethyl 1 gram capsule (Vascepa) 1 g PO BID 02/11/18 [History Confirmed 11/09/21] glimepiride 4 mg tablet 4 mg PO DAILY 03/15/20 [History Confirmed 11/09/21] nitroglycerin 0.4 mg sublingual tablet 0.4 mg sublingual Q5M PRN chest pain #25 tabs 09/22/20 [Rx Confirmed 11/09/21] hydralazine 10 mg tablet 10 mg PO TID #270 tabs 02/21/21 [Rx Confirmed 11/09/21] carvedilol 12.5 mg tablet 12.5 mg PO BID #180 tabs 06/07/21 [Rx Confirmed 11/09/21] levothyroxine 75 mcg tablet 75 mcg PO DAILY #90 tabs 06/07/21 [Rx Confirmed 11/09/21] furosemide 20 mg tablet 20 mg PO DAILY #90 tabs 07/07/21 [Rx Confirmed 11/09/21] atorvastatin 20 mg tablet See Rx Instructions .Route .COMPLEX #90 tabs 10/26/21 [Rx Confirmed 11/09/21] amiodarone 200 mg tablet 200 mg PO DAILY 11/09/21 [History Confirmed 11/09/21] sacubitril 49 mg-valsartan 51 mg tablet (Entresto) 1 tab PO BID 11/09/21 [History Confirmed 11/09/21] PFSH Medical History? Abnormal stress test Anemia Aneurysm of heart Atherosclerosis of coronary artery bypass graft without angina pectoris Atherosclerotic heart disease of [place] coronary artery without angina pectoris Cardiac arrest with ventricular fibrillation Cardiomyopathy in other diseases classified elsewhere Chest pain Chronic systolic CHF (congestive heart failure) Dyspnea Edema Fatigue Gout Hyperlipidemia Hypothyroidism, iatrogenic Idiopathic pulmonary hypertension Ischemic cardiomyopathy Left atrial enlargement Long-term use of high-risk medication Syncope and collapse Type 2 diabetes mellitus Ventricular tachycardia Surgical History? Aortocoronary bypass status (~10/2005) Automatic implantable cardiac defibrillator in situ (~02/2012) Family History? Father Myocardial infarctionMother CAD (coronary artery disease) HypertensionBrother HypertensionSister Hypertension DiabetesSister Hypertension Diabetes Social History? Smoking Status:? Former smoker alcohol intake:? never substance use type:? does not use ROS Const Const: Negative for fatigue, weakness, headache(s), frequent falls, excessive sweating, weight gain or weight loss Eyes Eyes: Negative for blind spots, loss of peripheral vision, transient loss of vision, blurry vision, change in vision or double vision ENT ENT: Negative for headache(s), dizziness, tinnitus, Nosebleed/epistaxis or balance problems Cardio Chest Pain: No Palpitations: No Edema: None Muscle aches with walking: None Resp Respiratory: Positive for SOB with activity; Negative for SOB at rest, SOB orthopnea\SOB lying down or Cough GI GI: Negative nausea, vomiting, heartburn, bloating, vomiting blood/hematemesis, bright, red blood in stools or black,tarry stools : Negative for hematuria Musc Musc: Negative for muscle aches/ myalgia, muscle weakness, joint pain or balance problems Skin Skin: Negative rash or wounds Neuro Neuro: Negative for dizziness, lightheadedness, near syncope, syncope, orthostatic symptoms, frequent falls, headache(s), weakness, confusion, memory loss, restless legs, blurry vision or double vision [place] Hematologic/Lymphatic: Negative for easy bleeding or easy bruising Endo Endo: Negative for fatigue, cold intolerance, heat intolerance or excessive sweating Psych Psych: Negative for anxiety or depression Allergy Allergy/Immunology: Negative for rash Cardiology Exam Const Appearance: cooperative, healthy appearing, comfortable, no acute distress, well developed and well groomed Nutritional Appearance: overweight Orientation: alert, awake and oriented x3 Head Head: normal to inspection, normocephalic and atraumatic Ears: hearing grossly normal bilaterally Nose: external nose normal Eyes Eyelids: eyelids normal Conjunctivae: conjunctivae normal Pupils: PERRL EOM: EOM intact bilaterally Neck Neck: normal visual inspection and full ROM Carotids: normal carotid upstroke Chest Chest inspection: normal inspection of the chest, symmetric chest movement and normal respiratory effort Auscultation: Bilateral: Clear to Auscultation Cardio Palpation: normal PMI Rate: regular rate Rhythm: regular rhythm Heart sounds: S1 normal and S2 normal GI GI: normal to inspection, soft and bowel sounds present Neuro General: patient alert, patient awake, patient oriented x3 and moves all extremities Skin Skin: no rashes or lesions noted Extremities Pulses: Normal: Right Radial Pulse and Left Radial Pulse Lower Extremity Edema: None: Bilateral Psych Psychological: normal affect Supplemental Info Supplemental Information Echocardiogram 2020: Severely dilated left ventricle. Severe segmental systolic dysfunction (see wall motion). The estimated ejection fraction is 15 %. The left atrium is moderately enlarged. The right atrium is mildly enlarged. There is moderate mitral annular calcification. Extension of the mitral annular calcification on the base of the posterior mitral valve leaflet. Trivial mitral valve insufficiency. Trivial tricuspid valve insufficiency. Mild focal aortic valve calcification. Trivial pulmonic valve insufficiency. Right ventricular systolic pressure estimated to be 40 mmHg. There is evidence of diastolic dysfunction. ICD or pacer leads identified within the right atrium ICD or pacer leads identified within the right ventricle. He had a transthoracic echocardiogram on 10/29/2012 Summary: The study was technically difficult. Contrast injection was performed. Severely dilated left ventricle. Severe segmental systolic dysfunction (see wail motion). The estimated ejection fraction is 15 %. The left atrium is moderately enlarged. The right atrium is mildly enlarged. There is mild annular annular calcification. Mild papillary muscle dysfunction of the mitral valve. Trivial mitral valve insufficiency. Mild tricuspid valve insufficiency. Aortic sclerosis, no stenosis. Right ventricular systolic pressure estimated to be 33 mmHg. Transmitral doppler flow suggestive of impaired relaxation of left ventricle lCD or pacer leads identified within the right atrium lCD or pacer leads identified within the right ventricle He had a stress test performed on 01/02/2006 CONCLUSION: 1. Technically adequate (%PMHR>85%) ETT. 2. Peak exercise ECG with no obvious diagnostic NEC evidence of myocardial ischemia at the heart rate achieved. ECG evidence of myocardial ischemia at a higher rate cannot be excluded. Stress Test Report Date: 10-25-2021 Procedure: Pharmacologic stress nuclear imaging study? Indications: Cardiac dysrhythmia; ventricular tachycardia; status post ICD discharge; CAD; PCI; CABG; ischemic mediated cardiomyopathy; status post left ventricular aneurysmectomy; chronic systolic mediated CHF; hyperlipidemia; hypertension Consent: Per the patient Procedure: The patient underwent pharmacologic (Regadenoson 0.4mg ) evaluation with a peak heart rate of 60 beats per minute (37%predicted maximal heart rate) and a peak blood pressure of 122/74 mmHg. The baseline ECG demonstrated electronic ventricular paced rhythm.? The peak pharmacologic ECG demonstrated electronic ventricular paced rhythm. There were no cardiac dysrhythmias pretest, during pharmacologic infusion, or recovery. There was no complaint of chest discomfort during pharmacologic infusion or recovery. The examination was discontinued secondary to completion of protocol. Impression: 1.? Pharmacologic (Regadenoson) evaluation 2.? Peak pharmacologic ECG with electronic ventricular paced rhythm. 3.? There were no cardiac dysrhythmias pretest, during pharmacologic infusion, or recovery. 4.? Nuclear images pending Myocardial perfusion imaging study: Technique: The patient was injected with 14.9 millicuries of technetium 99m Cardiolite and subsequently rest SPECT Cardiolite nuclear imaging was obtained in the horizontal long, vertical long, and short axis views. The patient underwent pharmacologic (Regadenoson) evaluation with a peak heart rate of 60 beats per minute (37% percent predicted maximal heart rate) and a peak blood pressure of 122/74 mmHg. The patient was injected with 45.0 millicuries of technetium 99m Cardiolite and subsequently stress SPECT Cardiolite nuclear imaging was obtained in the horizontal long, vertical long, and short axis views.? A gated Cardiolite study at peak stress was obtained. Interpretation: Rest and stress SPECT Cardiolite nuclear imaging status post realignment, normalization, and attenuation correction demonstrate the appearance of diminished absence of myocardial perfusion/tracer uptake in portions of the mid to distal anterior, anteroseptal, distal lateral, basal to distal inferolateral segments, and apical segments which appears to be somewhat more prominent following stress and areas involving the anterior, anteroseptal, and anterolateral segments.? There is diminished end-systolic thickening and brightening.? The gated Cardiolite study demonstrates diminished myocardial thickening and inward wall motion.? The reported LVEF is 14%. Impression: 1.? Rest and stress SPECT current nuclear imaging demonstrate myocardial perfusion changes compatible with an area of previous myocardial injury/inf arction involving portions of the anterior, anteroseptal, anterolateral, inferolateral, and apical segments with post-rest myocardial perfusion changes appearing compatible with mild akash-infarct related myocardial ischemia involving portions of the anterior, anteroseptal, and anterolateral segments. 2.? The gated Cardiolite study reports an LVEF of 14%. He had a cardiac catheterization performed on 10/27/2005 FINAL IMPRESSION 1. Elevated left ventricular end-diastolic pressure compatible with decreased LV systolic function. 2. Secondary pulmonary hypertension. 3. Oxygen saturations, no obvious evidence of intracardiac shunting phenomenon. 4. Left ventricle. Severe segmental left ventricular systolic dysfunction with severe hypokinesis of the distal anterior, anterior apical segment and akinesis of the mid diaphragmatic and inferior apical segment with an estimate LVEF of 15% 5. Left main. Angiographic venkatesh]. 1. LAD. Anterior trunk - proximal tapering toward the sepia] trolley collector system with diffuse 25 eccentric appearing stenosis. a> At the level of the septal trolley collector, there is 85-95% irregular eccentric appearing stenosis. b> Remainder of the LAD system with minimal luminal irregularities appearing to fill late and somewhat faintly but appearing patent. 7. LCX. Proximal (pro CM branch) 85% eccentric appearing stenosis. 8. RCA, Proximal to distal diffuse 25?50% irregular appearing stenosis with additional findings of segments suspicious for ulcerated plaque. a> Right PA proximally subtotally occuluded with remainder of the vessel filling late and faintly. 9. Abdominal aorta: patent. b) Bilateral renal artery patent with no obvious angiographic evidence of significant renal artery stenosis. Cardiac catheterization: [facility]: 02-07-2012 Dominance: Right Severe coronary calcification Left main: Normal Mid LAD: 100% stenosis Proximal LCx 50% stenosis Second OM: 99% stenosis (after graft anastomosis and at the site of a prior intervention) Mid RCA: 100% stenosis VELASQUEZ to the LAD: No evidence of disease SERENA to the OM: No evidence of disease SVG to the RCA: Occluded-at the graft ostium He had a PCI performed on 02/07/2012 at [facility] Summary: Coronary circulation: Bypass grafts were diseased. Severe coronary calcification was present. 1st lesion interventions; A successful balloon angioplasty was performed on the 99 % lesion in the 2nd obtuse marginal. Following intervention there was an excellent angiographic appearance with a 10 % residual stenosis. His previous open heart surgery was performed on 11/03/2005 at [facility] VELASQUEZ to the LAD, SERENA to the second OM, and an SVG to the right posterior lateral branch as well as a left ventricular apical and inferior aneurysmectomy He does have a biventricular ICD in place Net Software Developer: [employer] Name: Norma MACIEL Model #: [id number] Serial #: [id number] Date Implanted: ?02/08/2012 Device Characteristics Device: Biventricular Type:? Implantable defibrillator Labs: ?? ? LDL Cholesterol 55 mg/dL (0-130) ?? ? HDL Cholesterol 21 mg/dL (40-) L ?? ? Triglycerides 225 mg/dL (-199) H ?? ? VLDL Cholesterol 45 mg/dL (5-40)? H Diagnostics: ?? ? Electrocardiogram ? Stress Test NM ? Stress Test ? Pacemaker Check ? Pulmonary: ?? ? No Data to Display Assessment and Plan Assessment and Plan (1) Ischemic cardiomyopathy: ?Status:?Acute ?Plan: Patient does have some symptoms of increasing fatigue.? Would like to evaluate his ejection fraction with an upcoming echocardiogram.? This was previously scheduled with his ICD firing.? He will continue with his aggressive medical management of carvedilol furosemide and Entresto.? Based on heart catheterization can consider adding spironolactone or Farxiga if need be. (2) Automatic implantable cardiac defibrillator in situ: ?Status:?Resolved ?Comment: Bi-V ICD ?Plan: Device is functioning appropriately.? He did have a discharge on his device recently that he was not aware of as he was sleeping during this event.? We will continue with routine ICD interrogations. (3) Chronic systolic CHF (congestive heart failure): ?Status:?Chronic (4) Ventricular tachycardia: ?Status:?Acute ?Plan: Patient was started on amiodarone for his ventricular tachycardia.? If he remains on this will need to monitor his thyroid, hepatic? and pulmonary function tests routinely. (5) Abnormal stress test: ?Status:?Acute ?Plan: Patient does have an abnormal stress test.? We will proceed with a diagnostic heart catheterization to further assess. (6) Atherosclerosis of coronary artery bypass graft without angina pectoris: ?Status:?Chronic ?Qualifiers: ?[place] vs. transplanted heart:?[place] heart? Qualified Code(s):?I25.810 - Atherosclerosis of coronary artery bypass graft(s) without angina pectoris ?Comment: CABG x3 VELASQUEZ to LAD, SERENA as pedicle graft to 2nd OM, SVG to posterolateral branck of RCA, Apical and inferior Aneuysmectomy 10/2005 (7) Hyperlipidemia: ?Status:?Chronic ?Qualifiers: ?Hyperlipidemia type:?unspecified? Qualified Code(s):?E78.5 - Hyperlipidemia, unspecified ?Plan: Laboratory Tests ? 05/20/21 ? 11:31 Cholesterol ?121 LDL Cholesterol ?55 HDL Cholesterol ?21 L Patient will continue with current medical management. ? ? ? Medications: Changed From amiodarone ?200 mg PO take 1 tab by mouth three times daily for 1 week and then take 1 tab by mouth twice daily for 1 week and then take 1 tab by mouth daily;? 30 tabs 12RF ? ? To amiodarone 200 mg? PO DAILY ?Patient Instructions: Your procedure is schedule for 11/22/2021 at 1000, you will arrive at 0830. Nothing to eat or drink after midnight With a small sip of water take your morning medications- Carvedilol, hydralazine, levothyroxine, entresto.? Hold your metformin the day off and for 3 days after. 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 If you need a stent you will spend the night. Get your labs and CXR done this week. Plan Details Follow Up: ? ? 11/09/21 (keep as is) COVID (Procedure Consent) Procedure Criteria Procedure Criteria: Yes Elective The surgeon/proceduralist and patient have discussed in detail the risk of exposure to and/or potential harm posed by the COVID-19 virus with having a surgery/procedure at this time versus the risk of? delaying the surgery/procedure. It is not possible to know either the risk of delaying the surgery or procedure or chance of getting an infection with perfect accuracy, but a joint decision was made between the patient and the surgeon/proceduralist ?to proceed at this time with the scheduled surgery/procedure as indicated on the consent form. Coding Level of Care Code Off vis,est,level 4 Diagnoses Ischemic cardiomyopathy? I25.5 Automatic implantable cardiac defibrillator in situ? Z95.810 Chronic systolic CHF (congestive heart failure)? I50.22 Ventricular tachycardia? I47.2 Abnormal stress test? R94.39 Atherosclerosis of coronary artery bypass graft without angina pectoris? I25.810 ? ? ? [place] vs. transplanted heart: [place] heart Hyperlipidemia? E78.5 ? ? ? Hyperlipidemia type: unspecified Coding Level of Care Code Off vis,est,level 4 Diagnoses Ischemic cardiomyopathy? I25.5 Automatic implantable cardiac defibrillator in situ? Z95.810 Chronic systolic CHF (congestive heart failure)? I50.22 Ventricular tachycardia? I47.2 Abnormal stress test? R94.39 Atherosclerosis of coronary artery bypass graft without angina pectoris? I25.810 ? ? ? [place] vs. transplanted heart: [place] heart Hyperlipidemia? E78.5 ? ? ? Hyperlipidemia type: unspecified 11/09/21 1501 <Electronically signed by Nona JUSTICE> Date Nona JUSTICE Cosigner Signature: Date (iif applicable) CC:? Dr. Aaron Ham MD ~ Assessment & Plan Addt'l Comments Addendum: The patient has undergone additional noninvasive cardiovascular evaluation with a transthoracic echocardiogram on 11-10-2021. The results are noted below. Interpretation Summary The study was technically difficult. Contrast injection was performed. ? Severely dilated left ventricle. Severe segmental systolic dysfunction (see wall motion). The estimated ejection fraction is 20 %. The left atrium is severely enlarged. The right atrium is mildly enlarged. There is mild mitral annular calcification. Anterior leaflet diffuse mitral valve thickening. Trivial mitral valve insufficiency. Trivial tricuspid valve insufficiency. Mild focal aortic valve thickening. Mild focal aortic valve calcification. Trivial pericardial effusion. There are no echocardiographic indications of cardiac tamponade. Right ventricular systolic pressure estimated to be 40 mmHg. There is evidence of diastolic dysfunction. ICD or pacer leads identified within the right atrium ICD or pacer leads identified within the right ventricle. Comment: 2D echocardiographic images appearing potentially compatible with left ventricular apical aneurysmectomy. The patient's case has been discussed and reviewed. Based upon the patient's cardiovascular history, objective findings with respect to concerns of his ICD findings of VT and ICD discharge, and his other objective findings it was recommended he undergo reevaluation of his coronary/graft status with diagnostic cardiac catheterization. The procedure and risks have been discussed with him. He was agreeable to this approach. I have re-examined the patient. There are no clinical changes since date of exam
[2021-11-22] VITALS (18 sets, daily range): BP systolic 108–127; BP diastolic 59–72; PULSE 50–53; RESP 12–27; TEMP 36.8–37; O2SAT 92–98; BMI 30.2
--- NOTE | 2021-11-22 10:46 | CL.D_ITS ---
Patient Name: NATHALY COPPOLA Study Date: 11/22/2021 Performing: Aaron Velez MD Ht: 74.01 inches 188 cm : 1960 Wt: 229.28 lbs 104 kg Age: 61 Gender: male BSA: 2.3 PROCEDURE(S) PERFORMED DC04-([id number])LHC/COR/CABG IC01-([id number])PTCA, SINGLE CORONARY ARTERY CLINICAL PROFILE AND INDICATIONS Indications: Cardiac Arrythmia, LV Dysfunction, Cardiomyopathy, Suspected CAD Heart Failure: NYHA Class: 3, Newly Diagnosed: No, Heart Failure Type: Systolic Stress/Imaging Date: 10/25/2021tress Test with SPECT MPI: Positive Intermediate Risk Angina Classification Anginal Classification w/in 2 Weeks: No symptoms CAD Presentations: Other: cardiac arrhythmia; VT; ICD Discharge CONCLUSIONS [place] Multivessel CAD OM2 stent: patent VELASQUEZ to LAD: patent SERENA to OM2: patent SVG to RCA: occluded: chronic Left to Right Collateral Flow RECOMMENDATIONS Risk factor modification Medical therapy Referred for immediate PCI Case discussed / reviewed with Dr. Hernandez of Interventional Cardiology DESCRIPTION OF PROCEDURE The patient arrived to the procedure lab. The risks and benefits of the procedure as well as a full d escription of our services here and current unavailability of surgical backup were fully explained to the patient and/or their significant other prior to the catheterization. The Timeout was completed, verifying the correct patient and procedure. The patient's procedural site was prepped and draped in the usual fashion. Local anesthetic was given subcutaneously to right groin region with Lidocaine 2%. Pt moving hips, and legs during local anesthetic- Dr Velez present -aware and additional sedatio n given. VSS ^FreeText^. Using a modified Seldinger technique, arterial access was obtained via the r ight femoral artery, a 4Fr sheath was inserted Left Coronary Artery selective angiography was perfor med in multiple views using a 4 Fr. JL5 catheter. Right Coronary Artery selective angiography was the n performed in multiple views using a 4 Fr. JR4 catheter. Right internal mammary artery graft to the OM 1 selective angiography was performed in multiple views using a 4 Fr. IM catheter. Le ft internal mammary artery graft to the LAD selective angiography was performed in multiple views usi ng a 4 Fr. IM catheter.Contrast was injected through the sheath and the Right Iliac and Femoral arter y were assessed for possible closure device.The arterial sheath was pulled and a perclose closure dev ice was deployed for hemostasis CORONARY ANGIOGRAPHY DOMINANCE: Right Dominant LEFT HEART ASSESSMENT Left Ventricular Ejection Fraction: Not assessed LEFT MAIN: Angiographically normal LEFT ANTERIOR DESCENDING ARTERY: MID LAD: is occluded, to distal: fills from the VELASQUEZ graft with no angiographically significant disea se distal to the graft attachment CIRCUMFLEX ARTERY: Mild luminal irregularities OM 1: Proximal - eccentric: hazy: 75 % Stenosis OM 2: Proximal - fills via the SERENA graft with no angiographically significant appearing disease dist al to the graft attachment, Distal - Previously placed stent is patent RIGHT CORONARY ARTERY: Mild luminal irregularities MID RCA: is occluded GRAFTS: VELASQUEZ graft to the Mid LAD is patent SERENA graft to the OM2: is patent Saphenous Vein graft to the RCA is totally occluded (chronic: by [facility] cardiac cath on 02/07/2012: not reevaluated during this procedure) COLLATERAL FLOW: Collateral flow from Left to Right COMPLICATIONS No Complications PROCEDURE MEDICATIONS Versed 1 mg IV Fentanyl 50 mcg IV Versed 1 mg IV Fentanyl 50 mcg IV Oxygen: 2 L/min via nasal cannula Oxygen: 4 L/min via nasal cannula Baby Aspirin (81mg) 1 Tabs PO 11/22/2021 08:27:22 Brilinta 180 mg PO @ 11/22/2021 10:00:49 Heparin 8000 unit(s) IV 11/22/2021 10:05:40 SUMMARY OF HEMODYNAMIC DATA Time AIR REST ECG 08:28:31 AO 72/45 (56) SA 09:12:27 AO 102/75 (88) 09:38:11 AO 138/69 (89) 09:42:54 Signed By Aaron Velez MD On 11/22/2021 10:45:28 Aaron Velez MD
[2021-11-22] MEDS: 0.9% Normal Saline 1,000 ML 50 ML IV (11:53)
--- NOTE | 2021-11-22 11:57 | PCIREPORT_ITS ---
PCI Cardiac Cath Report PCI Report: 1. Successful PTCA of proximal OM 1 using balloon 2.5 x 15 mm emerge MR Proximal OM1 75% with reduction of stenosis to 20 to 30%. Maintenance of BUSHRA-3 flow pre and post procedure 2. Unable to place a stent to the proximal OM1 due to tortuosity and angulation of ostial left main as well as 90 degree ostial OM1 3. Placement of Perclose to close the right common femoral artery arteriotomy site. Consent; Risk and benefit of procedure explained in detail patient elected to proceed informed consent obtained. Preprocedure diagnosis; 61-year-old patient with extensive cardiac history patient has [place] multivessel CAD With prior PCI and stent of OM 2 has severe [place] coronary artery disease with a bypass graft Including VELASQUEZ to LAD which is patent And SERENA to OM 2 patent SVG to RCA occluded chronic, [id number] collateral flow demonstrated on this angiogram which was done by his primary traffic manager Dr. Velez. Patient has a extensive cardiac history with prior aneurysmectomy and ICD/BiV pacer Patient had episodes of ventricular tachycardia, essential hypertension and ischemic cardiomyopathy. Also had renal insufficiency with a creatinine baseline around 1.9. Interventional equipment used; 1. 6 [place] JL 4 guide catheter 2. 0.014 run-through extra floppy 180 cm 3. 2.5 x 50 mm emerge MR balloon. Medication used in the Mold Mover; Patient was given sedation and was comfortable with 2 mg of Versed and 50 mcg of fentanyl as well he was on oxygen 2 L/min. 1. Aspirin 81 mg 2. Brilinta 180 mg stat dose 3. Heparin 8000 units Procedure in detail; Under fluoroscopic guidance we will proceed with a 6 [place] JL 4 guide advanced ascending aorta Cannulated the left main without difficulty Following this we will proceed with the run-through wire across the lesion in the proximal OM1 which is tortuous with angulation Then we proceed with balloon dilatation using 2.5 x 50 mm balloon. Then we attempted to cross with the stent which is ultrathin [employer] [place] 2.75 x 15, unable to cross Then we use a jackelyn wire which is [employer] 0.014 wire and we tried the stent at second time unable to cross I believe this is due to the angulation which is 90 degree angulation at the origin of the OM1 which would make it more risky in this patient who had significant coronary disease with a history of aneurysmectomy V. tach biventricular pacer with ICD and multivessel severe CAD with bypass graft based on high risk patient with no surgical backup at this point I attempted to be satisfied with the balloon angioplasty result Then I performed selective right common femoral artery angiography And a proceed with the Perclose to close the right common femoral artery arteriotomy Conclusion recommendation PTCA of proximal OM1 using balloon angioplasty 2. Stent was not successful in this case due to the tortuosity and angulation and complexity of the cardiac history with no surgical backup At this point recommendation would be to treat with medical therapy Also noted total amount of contrast used in this case is 160 cc patient has a baseline abnormal creatinine of 1.99 With risk of contrast induced nephropathy and worsening of his kidney function requiring dialysis At this point I decided to stop and to treat this patient medically. Patient remained stable clinically He does not have any symptoms of chest pain His blood pressure is stable as well as oxygen saturation and his site monitor Patient will continue on dual antiplatelet therapy including Brilinta and aspirin Also will follow up with his primary traffic manager Dr. Velez to discuss further long-term plan and recommendation Mario Hernandez MD,FACC,[facility]
[2021-11-22] MEDS: Furosemide 20 MG/2 ML VIAL IV (11:58)
[2021-11-22] MEDS: 0.9% Saline Lock 10 ML Syringe IV (11:58)
[2021-11-22] MEDS: Ferrous Gluconate 324 MG Tablet PO (11:58)
--- NOTE | 2021-11-22 12:00 | EKG12_ITS ---
Test Reason : AM EKG Blood Pressure : / mmHG Vent. Rate : 050 BPM Atrial Rate : 050 BPM P-R Int : 118 ms QRS Dur : 202 ms QT Int : 556 ms P-R-T Axes : 072 -44 113 degrees QTc Int : 506 ms AV dual-paced rhythm Biventricular pacemaker detected Abnormal ECG When compared with ECG of 22-NOV-2021 13:24, MANUAL COMPARISON REQUIRED, DATA IS UNCONFIRMED Confirmed by POLO LANGFORD, LEXIE ([id number]), editor managing newspaper [employer] ([id number]) on 11/29/2021 11:06:34 AM Referred By: Aaron Velez Confirmed By:LEXIE CUELLAR MD
[2021-11-22] MEDS: 0.9% Normal Saline 1,000 ML 75 ML IV (12:05)
[2021-11-22 12:30] LABS: Bedside Glucose 199 mg/dL (74-106)
--- NOTE | 2021-11-22 13:30 | CRPHASE1_ITS ---
Patient Communication Former Patient:: Phase I PHII Cardiac Rehab Discussed with Patient:: Yes Guide to Cardiac Rehab Given to Patient:: Yes Cardiac Rehab Facility Choice List Given to Patient:: Yes Choice Program [facility] CR PHII:: Communication Given to CR Choice Program Other:: Communication Given to CR Route Returner:: Mario Hernandez Phase II Cardiac Rehab:: Yes Sessions:: 36 sessions - 3 days/wk, 12 weeks Cardiac Rehabilitation Info Cardiac Rehabilitation Program Information: Cardiac Rehabilitation is important for patients like you who are recovering from a heart problem. Cardiac rehabilitation programs are recognized as integral to the continued care of the patient with coronary heart disease. The cardiac rehabilitation program is designed to optimize a patient's physical, psychological, and social functioning. Health child care attendant work in cardiac rehabilitation programs and assist you with getting the treatments you need to get stronger and healthier - like exercise, healthy eating habits, and medications. Cardiac rehabilitation has been show to help people with heart problems live longer and have better life enjoyment than people who do not go to cardiac rehabilitation. Please contact the Cardiac Rehabilitation Program at [facility] at in two weeks if you have not heard from them.
--- NOTE | 2021-11-22 13:30 | CRPH1.INSTRU ---
General Education CAD and cardiac anatomy and function:: Patient communicates acknowledgment Explanation of diagnoses and procedures:: Patient communicates acknowledgment Sign/Symptoms of GA:: Patient communicates acknowledgment Antiplatelet therapy: Patient communicates acknowledgment Smoking Patient Nicotine/Smoking Risk Factors Are:: Non-smoker Recommendations Include:: Previous smoker; encourage continued cessation Nicotine/Smoking Response Code:: Patient communicates acknowledgment Dyslipidemia Patient Dyslipidemia Risk Factors Are:: Total Cholesterol, Triglycerides, HDL, LDL Recommendations Include:: Lipid profile provided, Reviewed NCEP/ATP guidelines, Therapeutic Lifestyle Change dietary guidelines Dyslipidemia Response Code:: Patient communicates acknowledgment Overweight/Obesity Patient Overweight/Obesity Risk Factors Are:: Obesity - > or = 30 Recommendations Include:: Weight loss of 5-10%, Reduced calorie diet, Exercise 5-7 times/week Overweight/Obesity:: Patient communicates acknowledgment Diabetes Patient Diabetes Risk Factors Are:: Elevated blood sugars Recommendations Include:: Maintain fasting blood sugars 70-110 md/dL, Maintain HgbA1c of 6% or less, Monitor blood sugar as prescribed, Diabetic dietary guidelines, Decrease/maintain body weight Diabetes:: Patient communicates acknowledgment Metabolic Syndrome Patient Metabolic Syndrome Risk Factors Are [3 of 5]:: Fasting blood sugar > 100 mg/dL, Waist circumference > 35 [female] or 40 [male], High triglyceride >150 Recommendations Include:: Reinforce compliance to risk factor modifications, Patient is diabetic, Encouraged follow-up with Primary Care Physician Metabolic Syndrome Response Code:: Patient communicates acknowledgment Sedentary Patient Sedentary Risk Factors Are:: Lack of regular exercise Recommendations Include:: Aerobic exercise 5-7 times/week for 20-30 minutes continuously, Benefits of regular exercise, Discussed home walking program, Monitored Outpatient Cardiac Rehab Sedentary Response Code:: Patient communicates acknowledgment Stress Patient Stress Risk Factors Are:: Patient denies stress as a risk factor
--- NOTE | 2021-11-22 15:05 | NURSING ---
Patient bedrest completed, up with RN assist to restroom and walk in room. Groin site checked following walk, site soft, no hematoma noted. Patient denies pain. Okay to be up independently at this time.
[2021-11-22] MEDS: hydrALAZINE 10 MG Tablet PO ×2 (15:16→21:14)
[2021-11-22] MEDS: Gemfibrozil 600 MG Tablet PO (16:27)
[2021-11-22 17:05] LABS: Bedside Glucose 174 mg/dL (74-106)
[2021-11-22] MEDS: TICAGRELOR 90 MG TABLET PO (21:14)
[2021-11-22] MEDS: SACUBITRIL/VALSARTAN 49-51 MG TABLET 1 EACH PO (21:15)
[2021-11-22] MEDS: Atorvastatin Calcium 20 MG Tablet PO (21:15)
[2021-11-22] MEDS: Carvedilol 12.5 MG Tablet PO (21:17)
[2021-11-22 22:50] LABS: Bedside Glucose 70 mg/dL (74-106)
[2021-11-22 23:36] LABS: Bedside Glucose 102 mg/dL (74-106)
[2021-11-23 03:00] VITALS: PULSE 50
[2021-11-23 05:11] VITALS: BP 110/69; PULSE 51; RESP 14; TEMP 36.4; O2SAT 93
[2021-11-23 05:50] LABS: Absolute Lymphocyte Count 0.82 X10^3/uL (0.83-4.51); Absolute Neutrophil Count 4.5 X10^3/uL (2.0-7.7); Basophil# 0.04 X10^3/uL; Basophil% 0.6 % (0-1); Eosinophil# 0.18 X10^3/uL; Eosinophils% 2.9 % (0-5); Hematocrit 42.8 % (40-54); Lymphocyte # 0.82 X10^3/ul (0.83-4.51); Lymphocyte % 13.3 % (19-41); Mean Corp Hgb Conc 32.7 g/dL (32-36); Mean Corpuscular Hgb 30.7 pg (27.0-32.0); Mean Corpuscular Volume 93.9 fL (80-94); Mean Platelet Vol. 10.9 fl (6.2-12.0); Monocyte# 0.64 X10^3/uL; Monocyte% 10.4 % (0-10); NRBC Flagged by Analyzer 0 % (0-5); Neutrophil # 4.46 X10^3/uL (2.7-7.7); Neutrophil % 72.5 % (47-70); Platelet Count 155 K/mm3 (150-450); RBC Distribution Width CV 15.7 % (11.6-14.6); RBC Distribution Width SD 53.5 fl (35.1-43.9); Red Blood Count 4.56 M/mm3 (4.6-6.2); White Blood Count 6.2 K/mm3 (4.4-11.0)
[2021-11-23] MEDS: Levothyroxine 75 MCG Tablet PO (06:12)
--- NOTE | 2021-11-23 06:29 | NURSING ---
Pt requested to take all oral medications after eating breakfast. It was explained to him that his synthroid should be taken earlier since it needs to be taken on an empty stomach at least an hour before eating. Pt verbalized understanding and synthroid was administered.
[2021-11-23 06:34] LABS: AST(SGOT) 25 U/L (15-37); Alanine Aminotransfer ALT/SGPT 26 U/L (16-61); Albumin, Serum 3.6 g/dL (3.2-5.0); Alkaline Phosphatase 41 U/L (45-117); Anion Gap 6 (5-15); BUN 69 mg/dL (7-18); BUN/Creat Ratio 30.9 RATIO (10-20); Calcium,Total 9.1 mg/dL (8.5-10.1); Chloride 108 mmol/L (98-107); Creatinine, Serum 2.23 mg/dL (0.70-1.30); EST Glomerular Filtration Rate 32 mL/min (>60); Est Glom Filt Rate - Afr Amer 39 mL/min (>60); Estimated Creatinine Clearance 40.44 ml/min; Globulin 3.7 g/dL (2.2-4.2); Glucose 46 mg/dL (74-106); Potassium 4.2 mmol/L (3.5-5.1); Protein, Total 7.3 g/dL (6.4-8.2); Sodium Level 140 mmol/L (136-145)
[2021-11-23 06:40] LABS: Bedside Glucose 57 mg/dL (74-106)
[2021-11-23 07:00] VITALS: PULSE 53
[2021-11-23 08:16] LABS: Bedside Glucose 110 mg/dL (74-106)
[2021-11-23 08:26] VITALS: BP 124/61; PULSE 54; RESP 16; TEMP 36.5; O2SAT 95
[2021-11-23 08:28] VITALS: PULSE 54
[2021-11-23] MEDS: Ferrous Gluconate 324 MG Tablet PO (08:28)
[2021-11-23] MEDS: Furosemide 20 MG Tablet PO (08:28)
[2021-11-23] MEDS: Febuxostat 40 MG TABLET 80 MG PO (08:28)
[2021-11-23] MEDS: hydrALAZINE 10 MG Tablet PO (08:28)
[2021-11-23] MEDS: Carvedilol 12.5 MG Tablet PO (08:28)
[2021-11-23] MEDS: SACUBITRIL/VALSARTAN 49-51 MG TABLET 1 EACH PO (08:28)
[2021-11-23] MEDS: Aspirin 81 MG TAB.CHEW PO (08:28)
[2021-11-23] MEDS: Gemfibrozil 600 MG Tablet PO (08:28)
[2021-11-23] MEDS: Glimepiride 4 MG Tablet PO (08:29)
[2021-11-23] MEDS: TICAGRELOR 90 MG TABLET PO (08:29)
--- NOTE | 2021-11-23 09:21 | PCM.DC ---
Discharge Instructions Diet Discharge Diet: Low fat / Low cholesterol and 1800 Calorie Control Diet Activity Discharge Activity: May Not Drive (x 48 hours), May Shower (Today) and May Take a Tub Bath (in 7 days) May resume sexual activity in: 2 weeks Weight Bearing Status: - (avoid heavy exertional activity x 2 weeks) Dressing / Incision Call your doctor if your incision/area has: Continuous Slow Oozing, Sudden Increased Bleeding, Increased Pain/ Swelling, Increased Redness, Foul Smelling Discharge and Swelling at the incision site Call your doctor if you observe: Fever of 101 or Higher, Shortness of breath, Dizziness, Fainting spells, Swelling in the ankles, Chest pain, Increased palpitations (irregular heartbeat) and Calf discomfort Remove Dressing in: 1 day Cleanse incision/area with: Soap & Water Follow Up Care Please Follow Up With: Aaron Velez MD When: [facility] to arrange follow visit Test Results: Test results from this visit will be discussed in further detail at your follow-up appointment, if applicable. Discharge Plan Admission Admit Date/Time: 11/22/21 10:47 Primary Reason for Your Visit: CAD; PCI; CABG; LV Aneurysmectomy; VT; ICD Attending Provider: Aaron Velez Primary Care Provider: Aaron Ham Discharge Orders/Prescriptions Prescriptions: New ticagrelor 90 mg Tablet 90 mg PO BID Qty: 60 3RF Continued gemfibrozil 600 mg tablet 600 mg PO BID ferrous gluconate 324 mg (38 mg iron) tablet 324 mg (38 mg iron) tablet 324 mg PO TID metformin 500 mg tablet 500 mg PO BID febuxostat [Uloric] 80 mg tablet 80 mg PO QDAY cholecalciferol (vitamin D3) 2,000 unit capsule 2,000 unit PO QDAY Vascepa 1 gram capsule 1 g PO BID glimepiride 4 mg tablet 4 mg PO DAILY nitroglycerin 0.4 mg tablet, sublingual 0.4 mg SUBLINGUAL Q5M PRN (Reason: chest pain) Qty: 25 3RF amiodarone 200 mg tablet 200 mg PO DAILY Entresto 49-51 mg tablet 1 tab PO BID Label Comments: TAKE 1 TABLET BY MOUTH TWICE DAILY hydralazine 10 mg tablet 10 mg PO TID Qty: 270 3RF Rx Instructions: TAKE 1 TABLET THREE TIMES A DAY levothyroxine 75 mcg tablet 75 mcg PO DAILY Qty: 90 3RF carvedilol 12.5 mg tablet 12.5 mg PO BID Qty: 180 3RF furosemide 20 mg tablet 20 mg PO DAILY Qty: 90 3RF atorvastatin 20 mg tablet See Rx Instructions .ROUTE .COMPLEX Qty: 90 3RF Dose Instruction: TAKE 1 TABLET DAILY Rx Instructions: TAKE 1 TABLET DAILY No Action aspirin 81 mg tablet,delayed release (DR/EC) 81 mg PO QDAY Referrals / Follow Up: Aaron Ham MD [Primary Care Provider] - Aaron Velez MD [STAFF PHYSICIAN] -
--- NOTE | 2021-11-23 09:26 | DS.PCM_ITS ---
Providers Date of Admission: 11/22/21 Date of Discharge: 11/23/21 Primary Care Physician: Dr. Aaron Ham MD Reason For Visit: ABN STRESS CABG Diagnosis Discharge Diagnosis (1) Ventricular tachycardia: Status: Acute Code(s): I47.2 - Ventricular tachycardia (2) Cardiomyopathy in other diseases classified elsewhere: Status: Acute Code(s): I43 - Cardiomyopathy in diseases classified elsewhere (3) Chronic systolic CHF (congestive heart failure): Status: Chronic Code(s): I50.22 - Chronic systolic (congestive) heart failure (4) Atherosclerosis of coronary artery bypass graft without angina pectoris: Status: Chronic Code(s): I25.810 - Atherosclerosis of coronary artery bypass graft(s) without angina pectoris Qualifiers: [place] vs. transplanted heart: [place] heart Qualified Code(s): I25.810 - Atherosclerosis of coronary artery bypass graft(s) without angina pectoris (5) History of angioplasty: Status: Acute Code(s): Z98.62 - Peripheral vascular angioplasty status (6) Aortocoronary bypass status: Status: Chronic Code(s): Z95.1 - Presence of aortocoronary bypass graft (7) Automatic implantable cardiac defibrillator in situ: Status: Resolved Code(s): Z95.810 - Presence of automatic (implantable) cardiac defibrillator (8) Hyperlipidemia: Status: Chronic Code(s): E78.5 - Hyperlipidemia, unspecified Qualifiers: Hyperlipidemia type: unspecified Qualified Code(s): E78.5 - Hyperlipidemia, unspecified (9) Essential hypertension: Status: Acute Code(s): I10 - Essential (primary) hypertension Plan Cardiac Catheterization Medications at Discharge Home Medications aspirin 81 mg tablet,delayed release 81 mg PO QDAY 05/10/17 cholecalciferol (vitamin D3) 50 mcg (2,000 unit) capsule 2,000 unit PO QDAY 05/10/17 febuxostat 80 mg tablet (Uloric) 80 mg PO QDAY 05/10/17 ferrous gluconate 324 mg (38 mg iron) tablet 324 mg PO TID 05/10/17 gemfibrozil 600 mg tablet 600 mg PO BID 05/10/17 metformin 500 mg tablet 500 mg PO BID 05/10/17 icosapent ethyl 1 gram capsule (Vascepa) 1 g PO BID 02/11/18 glimepiride 4 mg tablet 4 mg PO DAILY 03/15/20 nitroglycerin 0.4 mg sublingual tablet 0.4 mg sublingual Q5M PRN chest pain #25 tabs 09/22/20 hydralazine 10 mg tablet 10 mg PO TID #270 tabs 02/21/21 carvedilol 12.5 mg tablet 12.5 mg PO BID #180 tabs 06/07/21 levothyroxine 75 mcg tablet 75 mcg PO DAILY #90 tabs 06/07/21 furosemide 20 mg tablet 20 mg PO DAILY #90 tabs 07/07/21 atorvastatin 20 mg tablet See Rx Instructions .Route .COMPLEX #90 tabs 10/26/21 amiodarone 200 mg tablet 200 mg PO DAILY 11/09/21 sacubitril 49 mg-valsartan 51 mg tablet (Entresto) 1 tab PO BID 11/09/21 ticagrelor 90 mg tablet 90 mg PO BID #60 tabs 11/23/21 Hospital Course Operations None Procedures Cardiac catheterization and - (Cardiac Intervention: PTCA (no Stent)) Summary of Care Provided Minutes Spent on Discharge: 45 Hospital Course: The patient was brought to [facility] for outpatient cardiovascular evaluation with diagnostic cardiac catheterization based upon concerns of his history of CAD, PCI, CABG, left ventricular aneurysmectomy, ischemic mediated cardiomyopathy, c hronic systolic CHF, ventricular tachycardia, ICD with discharge, and an abnormal pharmacologic stress nuclear imaging study. The patient underwent diagnostic cardiac catheterization and was found to have progression of [place] vessel disease in OM1. He subsequently underwent PTCA-no stent-and OM1. He was monitored overnight. He appeared to be symptomatically and hemodynamically stable. His cardiac rhythm remained ventricular paced rhythm. He is going to be treated medically with continued outpatient cardiovascular follow-up and ICD follow-up. On this day he appeared to be stable for release home for continued outpatient follow-up. Physical Exam Const alert, oriented x3 and no apparent distress General Appearance: cooperative, comfortable, well kempt and well developed HEENT normocephalic, head/scalp atraumatic and hearing grossly normal bilaterally Eyes PERRL, EOMs intact bilaterally, conjunctivae normal and no scleral icterus Neck full ROM, supple and no JVD Chest Chest Narrative: Midline sternotomy incision; left pectoral incision Resp normal respiratory effort, normal air movement and clear to auscultation bilat erally Effort and Inspection: symmetric chest movement Cardio regular rate, regular rhythm, S1 normal heart sound and S2 normal heart sound GI normal to inspection, nondistended, normoactive bowel sounds Extremity Extremity Narrative: Trace bilateral pedal edema General Extremity: edema bilateral lower extremity Details: trace Peripheral Pulses: Yes femoral pulses present right (No bruit: No hematoma) 2+ Skin no rashes or lesions noted Neuro oriented x3, moves all extremities, no focal motor deficits and no sensory deficits noted Psych mental status grossly normal Weight / BMI Weight Weight: 240 lb 11.916 oz Body Mass Index (BMI) 30.2 ABG / Lab / Microbiology Data Result Diagrams: 11/23/21 05:05 11/23/21 05:05 Laboratory: Laboratory Results - last 24 hr 11/22/21 11:53: POC Glucose 199 H 11/22/21 16:26: POC Glucose 174 H 11/22/21 22:26: POC Glucose 70 L 11/22/21 23:01: POC Glucose 102 11/23/21 05:05: WBC 6.2, RBC 4.56 L, Hgb 14.0, Hct 42.8, MCV 93.9, MCH 30.7, MCHC 32.7, RDW Std Deviation 53.5 H, RDW Coeff of Nathaniel 15.7 H, Plt Count 155, MPV 10.9, Immature Gran % (Auto) 0.300, Neut % (Auto) 72.5 H, Lymph % (Auto) 13.3 L, [place] % (Auto) 10.4 H, Eos % (Auto) 2.9, Baso % (Auto) 0.6, Absolute Neuts (auto) 4.5, Absolute Lymphs (auto) 0.82 L, Nucleated RBC % 0 11/23/21 05:05: Sodium 140, Potassium 4.2, Chloride 108 H, Carbon Dioxide 26.0, Anion Gap 6, BUN 69 H, Creatinine 2.23 H, Estim Creat Clear Calc 40.44, Est GFR (MDRD) Af Amer 39 L, Est GFR (MDRD) Non-Af 32 L, BUN/Creatinine Ratio 30.9 H, Glucose 46 L, Calcium 9.1, Total Bilirubin 0.50, AST 25, ALT 26, Alkaline Phosphatase 41 L, Total Protein 7.3, Albumin 3.6, Globulin 3.7, Albumin/Globulin Ratio 1.0 11/23/21 06:16: POC Glucose 57 L 11/23/21 07:51: POC Glucose 110 H D/C Instructions Discharge Diet: Low fat / Low cholesterol and 1800 Calorie Control Diet May resume sexual activity in: 2 weeks Weight Bearing Status: - (avoid heavy exertional activity x 2 weeks) Call your doctor if your incision/area has: Continuous Slow Oozing, Sudden Increased Bleeding, Increased Pain/ Swelling, Increased Redness, Foul Smelling Discharge and Swelling at the incision site Call your doctor if you observe: Fever of 101 or Higher, Shortness of breath, Dizziness, Fainting spells, Swelling in the ankles, Chest pain, Increased palpitations (irregular heartbeat) and Calf discomfort Cleanse incision/area with: Soap & Water Additional Instructions: Hold metformin until 11-24-2021 and then resume. Outpatient BMP on 11-24-2021 ([facility] office staff to place order) Please Follow Up With: Aaron Velez MD When: [facility] to arrange follow visit Meaningful Use Info Meaningful Use Diagnoses (Choose all that apply): None applicable Discharge Plan Admission Admit Date/Time: 11/22/21 10:47 Primary Reason for Your Visit: CAD; PCI; CABG; LV Aneurysmectomy; VT; ICD Attending Provider: Aaron Velez Primary Care Provider: Aaron Ham Discharge Orders/Prescriptions Prescriptions: New ticagrelor 90 mg Tablet 90 mg PO BID Qty: 60 3RF Continued gemfibrozil 600 mg tablet 600 mg PO BID ferrous gluconate 324 mg (38 mg iron) tablet 324 mg (38 mg iron) tablet 324 mg PO TID metformin 500 mg tablet 500 mg PO BID febuxostat [Uloric] 80 mg tablet 80 mg PO QDAY cholecalciferol (vitamin D3) 2,000 unit capsule 2,000 unit PO QDAY Vascepa 1 gram capsule 1 g PO BID glimepiride 4 mg tablet 4 mg PO DAILY nitroglycerin 0.4 mg tablet, sublingual 0.4 mg SUBLINGUAL Q5M PRN (Reason: chest pain) Qty: 25 3RF amiodarone 200 mg tablet 200 mg PO DAILY Entresto 49-51 mg tablet 1 tab PO BID Label Comments: TAKE 1 TABLET BY MOUTH TWICE DAILY hydralazine 10 mg tablet 10 mg PO TID Qty: 270 3RF Rx Instructions: TAKE 1 TABLET THREE TIMES A DAY levothyroxine 75 mcg tablet 75 mcg PO DAILY Qty: 90 3RF carvedilol 12.5 mg tablet 12.5 mg PO BID Qty: 180 3RF furosemide 20 mg tablet 20 mg PO DAILY Qty: 90 3RF atorvastatin 20 mg tablet See Rx Instructions .ROUTE .COMPLEX Qty: 90 3RF Dose Instruction: TAKE 1 TABLET DAILY Rx Instructions: TAKE 1 TABLET DAILY No Action aspirin 81 mg tablet,delayed release (DR/EC) 81 mg PO QDAY Referrals / Follow Up: Aaron Velez MD [STAFF PHYSICIAN] - Aaron Ham MD [Primary Care Provider] -
--- NOTE | 2021-11-23 10:00 | EKG12_ITS ---
Test Reason : post pci Blood Pressure : / mmHG Vent. Rate : 050 BPM Atrial Rate : 050 BPM P-R Int : 118 ms QRS Dur : 202 ms QT Int : 572 ms P-R-T Axes : 053 -44 122 degrees QTc Int : 521 ms AV dual-paced rhythm Biventricular pacemaker detected Abnormal ECG When compared with ECG of 24-JAN-2012 19:56, Electronic ventricular pacemaker has replaced Sinus rhythm Vent. rate has decreased BY 29 BPM Confirmed by POLO LANGFORD, LEXIE ([id number]), acquisition editor AUTUMN RUFF ([id number]) on 11/29/2021 11:09:26 AM Referred By: Aaron Velez Confirmed By:LEXIE CUELLAR MD
--- NOTE | 2021-11-23 10:30 | CASEMGMT ---
BLANCA URRUTIA NOTE: Pt being discharged home today. Script for Brilinta has been e-scribed to [facility]. BLANCA URRUTIA to room. Introduced self and role. Brilinta savings card given to pt and instructed on use. Pt made aware, if refills are not affordable, to discuss more affordable options @ cardiology appt. Questions answered. Pt voices understanding. Pt denies other discharge planning needs or concerns. Tsering DENNISON RN CM
--- NOTE | 2021-11-23 10:42 | PHA.DC.MC ---
Pharmacy Service has performed discharge medication reconciliation and counseling for this patient. 1. TICAGRELOR 90MG PO BID The patient's discharge medication list was reviewed for discrepancies and discrepancies were resolved. Home Medications aspirin 81 mg tablet,delayed release 81 mg PO QDAY 05/10/17 cholecalciferol (vitamin D3) 50 mcg (2,000 unit) capsule 2,000 unit PO QDAY 05/10/17 febuxostat 80 mg tablet (Uloric) 80 mg PO QDAY 05/10/17 ferrous gluconate 324 mg (38 mg iron) tablet 324 mg PO TID 05/10/17 gemfibrozil 600 mg tablet 600 mg PO BID 05/10/17 metformin 500 mg tablet 500 mg PO BID 05/10/17 icosapent ethyl 1 gram capsule (Vascepa) 1 g PO BID 02/11/18 glimepiride 4 mg tablet 4 mg PO DAILY 03/15/20 nitroglycerin 0.4 mg sublingual tablet 0.4 mg sublingual Q5M PRN chest pain #25 tabs 09/22/20 hydralazine 10 mg tablet 10 mg PO TID #270 tabs 02/21/21 carvedilol 12.5 mg tablet 12.5 mg PO BID #180 tabs 06/07/21 levothyroxine 75 mcg tablet 75 mcg PO DAILY #90 tabs 06/07/21 furosemide 20 mg tablet 20 mg PO DAILY #90 tabs 07/07/21 atorvastatin 20 mg tablet See Rx Instructions .Route .COMPLEX #90 tabs 10/26/21 amiodarone 200 mg tablet 200 mg PO DAILY 11/09/21 sacubitril 49 mg-valsartan 51 mg tablet (Entresto) 1 tab PO BID 11/09/21 ticagrelor 90 mg tablet 90 mg PO BID #60 tabs 11/23/21 The patient was counseled on the following discharge medications and changes in medications for homegoing were reviewed. The Reason for Use, instructions for use, and potential side effects were reviewed for all new medications. The patient's questions regarding all of their medications were answered. The patient was able to verbally demonstrate an understanding of their discharge medications.
== END 2021-11-23 09:33 | disposition home or self-care (01) ==
LOC: PCU 11-23 07:32
PROVIDERS: Admitting Provider Internal Medicine Cardiovascular Disease; PCP Family Medicine; Referring Provider Internal Medicine Cardiovascular Disease; Visit Provider Internal Medicine Cardiovascular Disease
DX: I47.2 Ventricular tachycardia (principal); I11.0 Hypertensive heart disease with heart failure; I50.22 Chronic systolic (congestive) heart failure; I27.29 Other secondary pulmonary hypertension; I25.5 Ischemic cardiomyopathy; Z79.02 Long term (current) use of antithrombotics/antiplatelets; I25.810 Atherosclerosis of coronary artery bypass graft(s) without angina pectoris; Z87.891 Personal history of nicotine dependence; N28.9 Disorder of kidney and ureter, unspecified; R94.39 Abnormal result of other cardiovascular function study; Z79.82 Long term (current) use of aspirin; E78.5 Hyperlipidemia, unspecified; Z95.810 Presence of automatic (implantable) cardiac defibrillator; Z79.899 Other long term (current) drug therapy; Z79.84 Long term (current) use of oral hypoglycemic drugs
CPT/HCPCS: 36415; 71046; 80048; 80053; 82962; 85025; 85027; 85610; 85730; 92920; 93005; 93455; 96361; 96374; 99152; 99153; 99218; C1874; J7030; Q9967; A4216; C1725; C1760; C1769; C1887; C1894; G0378; J1940